=== PATIENT | male | born 1955 | race Caucasian/White ===

== ENCOUNTER 2020-03-23 09:44 | Emergency (ER) | payer OTHER, SELFPAY ==
[2020-03-23] VITALS (16 sets, daily range): BP systolic 140–181; BP diastolic 72–108; PULSE 76–92; RESP 16; TEMP 36.1; O2SAT 93–99
--- NOTE | 2020-03-23 09:55 | ED.BACK ---
HPI - Back Pain/Injury General Chief Complaint: Extremity Injury, Lower Stated Complaint: Leg spasm Time Seen by Provider: 03/23/20 09:48 Source: patient and EMS Mode of arrival: EMS Limitations: no limitations History of Present Illness HPI Narrative: This is a 64-year-old male who comes to the emergency department with acute on chronic lumbar back pain radiated into his leg. This morning while sitting in his chair watching TV patient states his left lower extremity started to have increasing pain and spasming. He states he has not been able to get it to stop. Patient states that he is having difficulty with movement. He has had chronic back issues in the past and states he can easily tweak his back. He states he kind of tweaked it earlier this week getting out of a car Um. His pattern of pain has not changed but the spasm is new. He states it has been occurring for approximately 30 minutes. He does have some tingling in the toes but denies any other numbness or sensation changes. He denies any saddle anesthesia. No bowel or bladder incontinence. He denies any fevers, no chills no cold cough or congestion. No chest pain or shortness of breath. No nausea or vomiting. No other GI or urinary symptoms. Patient denies any other medical issues. He denies any prior surgeries except for cholecystectomy. He states no prior back surgeries or interventions. Patient denies any allergies to medications. No tobacco, alcohol or illicit. Related Data Home Medications Medication Instructions Recorded Confirmed naproxen sodium [Aleve] 220 mg PO BID PRN 03/23/20 03/23/20 Allergies Allergy/AdvReac Type Severity Reaction Status Date / Time No Known Drug Allergies Allergy Verified 03/23/20 10:23 Review of Systems Review of Systems ROS Unobtainable: All systems reviewed & are unremarkable except as noted in HPI and below Patient History Medical History (Updated 03/23/20 @ 15:40 by Georgiana Galindo DO) Chronic back pain Surgical History (Updated 03/23/20 @ 10:00 by Georgiana Galindo DO) Hx of cholecystectomy Social History Smoking Status: Former smoker Smoking Status: Former smoker Substance Use Type: does not use Exam Narrative Exam Narrative: GEN: Obese, well-appearing male, alert and oriented x 3, patient appears to be in [id number] distress. HEENT: Atraumatic, pupils are equal round reactive to light, extraocular movements are intact, nares are clear. HEART: Regular rate and rhythm without murmur, clicks, rubs. LUNGS:Lungs clear to auscultation, no wheezes, rales, crackles, chest moves symmetrically ABD:bowel sounds normal, soft, non-tender, no guarding, rebound, rigidity, no masses noted, no hepatosplenomegaly :No CVA tenderness BACK: No cervical, thoracic or lumbar vertebral point tenderness. Patient does have discomfort with palpation of the left piriformis region. Patient has decreased range of motion. Patient's gait is not tested. Muscle strength is difficult to evaluate on exam patient has full range of motion of his right lower extremity. He has twitching or shaking of his left lower extremity and into the foot there are no fasciculations appreciated but patient has difficulty with any sort of movement. DTRs tested but difficult to assess secondary to movement. 2+ dorsalis pedis bilaterally. Sensation is intact in bilateral lower extremities. MSCL: Non-tender, no muscle atrophy, no swelling or edema, no cyanosis, pallor or other skin changes. NEURO:CN 2-12 intact, sensation normal Initial Vital Signs Initial Vital Signs: Vital Signs Temperature 97.0 F L 03/23/20 09:49 Pulse Rate 92 H 03/23/20 09:49 Respiratory Rate 16 03/23/20 09:49 Blood Pressure 181/101 H 03/23/20 09:49 Pulse Oximetry 99 03/23/20 09:49 Scores GCS Marisela coma scale eye opening: Spontaneous Marisela coma scale verbal response: Orientated [place] coma scale motor response: Obey commands [place] coma scale total score: 15 Course Orders Ordered: ED Orders 03/23/20 09:55 CT lumbar spine wo con Stat 03/23/20 10:25 CT head/brain wo con Stat 03/23/20 10:40 Complete Blood Count AUTO DIFF Stat Comprehensive Metabolic Panel Stat Magnesium Stat Prolactin Stat 03/23/20 10:59 CT chest abd pel w con Stat 03/23/20 11:05 COVID19 Stat Discontinued Medications Dexamethasone (Dexamethasone 10 Mg/Ml Vial) 10 mg IV NOW ONE Stop: 03/23/20 09:59 Last Admin: 03/23/20 10:05 Dose: 10 mg Documented by: WAYNE Diazepam (Diazepam 10 Mg/2 Ml Syringe) 2 mg IV NOW ONE Stop: 03/23/20 09:56 Last Admin: 03/23/20 10:05 Dose: 2 mg Documented by: WAYNE Diazepam (Diazepam 10 Mg/2 Ml Syringe) 5 mg IV NOW ONE Stop: 03/23/20 10:30 Last Admin: 03/23/20 10:30 Dose: 5 mg Documented by: WAYNE Sodium Chloride (Normal Saline 0.9%) 1,000 mls @ 1,000 mls/hr IV BOLUS ONE Stop: 03/23/20 10:54 Last Infusion: 03/23/20 11:25 Dose: 0 mls/hr Documented by: Admin: 03/23/20 10:05 Dose: 1,000 mls/hr Documented by: WAYNE Levetiracetam 1,000 mg/ Sodium (Chloride) 110 mls @ 440 mls/hr IV NOW ONE Stop: 03/23/20 11:01 Last Infusion: 03/23/20 12:05 Dose: 0 mls/hr Documented by: Admin: 03/23/20 11:21 Dose: 440 mls/hr Documented by: WAYNE Ketorolac Tromethamine (Ketorolac 30 Mg/Ml Vial) 30 mg IV NOW ONE Stop: 03/23/20 09:56 Last Admin: 03/23/20 10:11 Dose: 30 mg Documented by: WAYNE Oxycodone HCl (Oxycodone Ir 5 Mg Tablet) 5 mg PO NOW ONE Stop: 03/23/20 14:57 Last Admin: 03/23/20 15:00 Dose: 5 mg Documented by: WAYNE Reevaluation(s) Reevaluation #1: Patient did not have improvement of shaking until after second dose of valium. Pain is slowly improving with Toradol. Time: 10:33 Consultations Consultation #1: Dr. Romero called with results of Head CT. Appears to be metastatic lesions on CT. Time: 10:43 Consultation #2: Spoke with Dr. Glaser from oncology. Recommends dexamethason, Keppra may be appropriate especially if patient does not choose hospitalization. If patient is amenable with extensive changes and edema on CT would like benefit from transfer for eval and possible initiation of radiation which would be hard to do quickly over the holidays. Dr. Glaser would recommend [place], [place], [place] as closest best choices. Time: 11:15 Consultation #3: Spoke with Dr. Simpson with oncology at [place]. He discussed case with radiation oncology and recommends transfer to [facility] for further workup and possible biopsy. Time: 14:34 Additional Consultation(s): Call to [facility], spoke with Dr. Caban the medical attending at [facility] ER accepts for transfer. He asked that we do relay that patient will have initial workup and review emergency department and then will likely be transferred to [facility] for the rest of his care dependent on how long and course of care in the emergency department. Patient was updated in department and is comfortable with plan. Vital Signs Vital signs: Vital Signs - 8 hr 03/23/20 10:29 03/23/20 10:30 03/23/20 10:31 Pulse Rate 86 87 83 Respiratory Rate Blood Pressure 155/93 H 155/108 H Pulse Oximetry 96 97 96 03/23/20 11:00 03/23/20 11:01 03/23/20 11:37 Pulse Rate 83 83 Respiratory Rate Blood Pressure 152/85 H Pulse Oximetry 95 95 98 03/23/20 11:38 03/23/20 12:00 03/23/20 12:01 Pulse Rate 92 H 76 79 Respiratory Rate Blood Pressure 140/82 147/81 H Pulse Oximetry 97 97 96 03/23/20 12:30 03/23/20 12:31 03/23/20 14:10 Pulse Rate 85 85 91 H Respiratory Rate Blood Pressure 145/72 H 151/83 H Pulse Oximetry 95 94 93 03/23/20 15:46 Pulse Rate 88 Respiratory Rate 16 Blood Pressure 152/78 H Pulse Oximetry MDM - Back Pain/Injury Lab Data Attestation: I reviewed the patient's lab results. Result diagrams: 03/23/20 10:40 03/23/20 10:40 Labs: Lab Results 03/23/20 03/23/20 03/23/20 Range/Units 10:40 10:40 11:05 WBC 6.7 (4.5-11.0) X10^3/uL RBC 5.26 (4.5-5.9) X10^6/uL Hgb 15.3 (13.5-17.5) g/dL Hct 44.2 (41-53) % MCV 84.0 (80-100) fL MCH 29.0 (26-34) PG MCHC 34.5 (30-36) % RDW 13.3 (11.6-14.8) % Plt Count 159 (150-400) X10^3/uL Neut % (Auto) 63.9 (50-75) % Lymph % (Auto) 27.1 (25-40) % [place] % (Auto) 6.3 (3-14) % Eos % (Auto) 2.2 (2-4) % Baso % (Auto) 0.5 (0-2) % Neut # (Auto) 4300 (1649-5240) /uL Lymph # (Auto) 1800 (9150-7486) /uL [place] # (Auto) 400 (0-900) /uL Eos # (Auto) 100 (0-450) /uL Baso # (Auto) 0 (0-100) /uL Sodium 138 (137-145) mmol/L Potassium 4.6 (3.4-5.1) mmol/L Chloride 107 (98-107) mmol/L Carbon Dioxide 29 (22-32) mmol/L BUN 23 H (9-20) mg/dL Creatinine 0.69 (0.66-1.25) mg/dL Estimated GFR > 60.0 (>60) mL/min BUN/Creatinine Ratio 33.3 H (6-22) Glucose 127 H (80-110) mg/dL Calcium 8.8 (8.4-10.2) mg/dL Magnesium 1.9 (1.6-2.3) mg/dL Total Bilirubin 0.5 (0.2-1.3) mg/dL AST 19 (17-59) IU/L ALT 20 (<50) IU/L Alkaline Phosphatase 75 (38-126) U/L Total Protein 6.7 (6.3-8.2) g/dL Albumin 3.8 (3.5-5.0) g/dL Globulin 2.9 (1.7-4.1) g/dL Albumin/Globulin Ratio 1.3 (1.0-2.8) Prolactin 20.7 H (3.7-17.9) ng/mL COVID-19 PCR Negative (Negative) Urine Dip Bedside Urine Glucose Negative Bedside Urine Bilirubin - Negative Bedside Urine Ketone - Negative Urine Specific [place] 1.015 Bedside Urine Occult Blood - Negative Bedside Urine pH 7.5 Bedside Urine Protein - Negative Bedside Urine Urobilinogen - Negative Bedside Urine Nitrite - Negative Bedside Urine Leukocytes - Negative Esterase Imaging Data CT scan - head: Radiologist's Impression: [facility] [place] [id number] Scan ReportSigned Patient: Nini Jensen EMR#: [id number]: 6Acct:[id number]/Sex: 64 / MDate of Service: 03/23/20Loc: EDAccession Number: [id number] Procedure: CT head/brain wo con Ordering Provider: Georgiana Galindo D.O. PROCEDURE: CT HEAD/BRAIN WO CON INDICATIONS: back pain, lower leg pain, new spasm will not stop of LLE TECHNIQUE: Noncontrast 4.5 mm thick angled axial sections acquired from the foramen magnum to the vertex, with coronal and sagittal reformats. For radiation dose reduction, the following was used: automated exposure control, adjustment of mA and/or kV according to patient size. COMPARISON: [facility], CT, CT LUMBAR SPINE WO CON, 03/23/2020, 10:07. FINDINGS: Image quality: Excellent. CSF spaces: Basal cisterns are patent. No extra-axial fluid collections. The ventricles are symmetric in size and shape. Brain: Broad areas of vasogenic edema can be seen involving the right cerebral hemisphere, with relative sparing of the overlying cortex. There is also mild low density seen within the left temporal lobe anteriorly. No intracranial hemorrhage can be seen. There is cerebral volume loss for age, with resultant ventricular and sulcal prominence. There are periventricular and deep white matter chronic small vessel ischemic changes. There is intracranial internal carotid artery atherosclerosis. Skull and face: Calvarium and visualized facial bones appear intact, without suspicious lesions. Sinuses: Visualized sinuses and mastoids are clear. IMPRESSION: High suspicion for intracranial metastatic disease. When clinically appropriate, please consider a dedicated brain MRI (without and with contrast) for further evaluation (assuming that there is no contraindication). Note: Findings and recommendations discussed by telephone with Dr. Galindo at 9:41 a.m. [place] time on March 23, 2020. Dictated by: Chaitanya Romero M.D. on 03/23/2020 at 9:35 Approved by: Chaitanya Romero M.D. on 03/23/2020 at 9:[address]: Radiologist's Impression: [facility] [place] [id number] Scan ReportSigned Patient: Nini Jensen EMR#: [id number]: 6Acct:[id number]/Sex: 64 / MDate of Service: 03/23/20Loc: EDAccession Number: [id number] Procedure: CT lumbar spine wo con Ordering Provider: Georgiana Galindo D.O. PROCEDURE: CT LUMBAR SPINE WO CON INDICATIONS: back pain, lower leg pain, new spasm will not stop of LLE TECHNIQUE: Noncontrast 3 mm thick sections acquired from the T12 level to the sacrum. Sagittal and coronal reformats were constructed. For radiation dose reduction, the following was used: automated exposure control. COMPARISON: [facility], CT, CT HEAD/BRAIN WO CON, 03/23/2020, 10:07. FINDINGS: Image quality: Excellent. Bones: No acute vertebral body compression fractures. No suspicious lytic or blastic bony lesions. Central spinal caliber is of normal overall caliber. No pars defects. Mild dextroconvex scoliotic curvature is seen. There is minimal retrolisthesis seen at the L1-L2 level and at the L5-S1 level. T12-L1: Normal. L1-L2: Calcification can be seen along the posterior aspect of the annulus fibrosus, as on series 8, image 40. L2-L3: The disc height is well preserved. Mild generalized disc bulge is seen. There is osep-my-mdduluog right-sided and no significant left-sided neural foraminal narrowing seen. Minimal central canal narrowing is seen. L3-L4: The disc height is well preserved. Mild to moderate disc bulge is seen. Moderate bilateral neural foraminal narrowing is seen. Mild central canal narrowing is seen. L4-L5: Minimal loss of disc height is seen. Moderate disc bulge is seen, with a central/left disc protrusion. At least moderate facet hypertrophy is seen. Associated hypertrophy of the ligamentum flavum can be seen. There is moderate to severe right-sided and at least moderate left-sided neural foraminal narrowing seen. At least moderate central canal narrowing is seen. L5-S1: Mild loss of disc height is seen. Moderate to prominent disc bulge is seen. Moderate facet joint hypertrophy is seen. There is moderate to severe right-sided and moderate left-sided neural foraminal narrowing seen. Moderate central canal narrowing is seen. Soft tissues: No retroperitoneal masses or hematomas. Visualized aorta is normal in caliber. Atherosclerotic calcification is noted. A normal appendix is incidentally noted. IMPRESSION: Degenerative changes are seen, which are worst involving the lower lumbar spine. Dictated by: Chaitanya Romero M.D. on 03/23/2020 at 9:43 Approved by: Chaitanya Romero M.D. on 03/23/2020 at 9:46 CT scan - abdomen/pelvis: Radiologist's Impression: [address] [id number] Scan ReportSigned Patient: Nini eJnsen EMR#: [id number]: 6Acct:[id number]/Sex: 64 / MDate of Service: 03/23/20Loc: EDAccession Number: [id number] Procedure: CT chest abd pel w con Ordering Provider: Georgiana Galindo D.O. PROCEDURE: CT CHEST ABD PEL W CON INDICATIONS: lesions in brain, no known prior ca history. TECHNIQUE: After the administration of oral and intravenous contrast, 5 mm thick sections acquired from the lung apices to the symphysis. 5 mm coronal and sagittal reformats were performed, with additional 7 mm coronal MIP reformats through the lungs. For radiation dose reduction, the following was used: automated exposure control, adjustment of mA and/or kV according to patient size. COMPARISON: [facility], CT, ABDOMEN/PELVIS WITH CONTRAST, 05/14/2013, 19:03. FINDINGS: Image quality: Excellent. CHEST: Lungs and pleura: Dependent atelectasis/scarring in posterior aspect of bilateral lower lobes are seen. No pleural effusions or pneumothorax. Central and peripheral airways appear patent and normal in caliber. Mediastinum: Heart size is mildly enlarged. No pericardial effusion. No mediastinal or hilar adenopathy by size criteria. Thoracic aorta and central pulmonary arteries are normal in size. Esophagus is normal in caliber. There is a small hiatal hernia. Chest wall: No axillary or supraclavicular adenopathy by size criteria. Thyroid gland is within normal limits. ABDOMEN: Solid organs: Liver is normal in size . Decreased liver parenchymal density is seen consistent with hepatic steatosis. No discrete hepatic lesion is noted. Gallbladder is surgically absent. Biliary system is non dilated. Pancreas enhances normally. Spleen is enlarged, no discrete splenic lesion. No adrenal nodules. Kidneys demonstrate normal size and enhancement, without hydronephrosis. Bilateral renal parenchymal hypodensities are seen measures up to 1.6 centimeters in midpole of left kidney and likely represent renal cysts. Peritoneum and bowel: Bowel loops demonstrate normal wall thickness and caliber. No free fluid or air. Appendix is visualized and is within normal limits. Nodes and vessels: No retroperitoneal or mesenteric adenopathy by size criteria. Aorta and inferior vena cava are normal in size. Miscellaneous: No ventral hernias. PELVIS: Genitourinary: Bladder wall thickness is normal. Enlarged prostate gland with mild mass effect of floor of urinary bladder is seen. Miscellaneous: No inguinal hernias or adenopathy. Bones: No suspicious bony lesions. No vertebral body compression fractures. Please refer to lumbar spine CT report for evaluation of degenerative disc disease in lower lumbar spine. IMPRESSION: 1. Bibasilar dependent atelectasis/scarring. No discrete pulmonary nodule or mass. Airway is patent. 2. No lymphadenopathy is seen in chest, abdomen or pelvis. 3. Hepatic steatosis. No discrete hepatic lesion. Splenomegaly. 4. Small hiatal hernia. No bowel obstruction or abnormal bowel wall thickening. No free fluid or free air. 5. Suggestion of bilateral renal cysts. No hydronephrosis. Normal appearing urinary bladder. Mildly enlarged prostate gland with mass effect on bladder. 6. No gross suspicious bony lesion. Degenerative disc disease in lumbar spine better evaluated on dedicated CT of lumbar spine study. Dictated by: Chris Read M.D. on 03/23/2020 at 11:56 Approved by: Chris Read M.D. on 03/23/2020 at 12:33 MDM Narrative Medical decision making narrative: 64-year-old male comes to the emergency department with complaint of back pain acute on chronic and spasming or shaking of his left lower extremity for the past 30 minutes which will not stop. Patient has not had prior symptoms in the past. He denies any other issues other than some mild tingling in his toes an increase in his typical back pain. Patient's head CT shows significant areas of vasogenic edema in the right cerebral hemisphere with relative sparing of the overlying cortex, there is also a low-density lesion seen in the left temporal lobe anteriorly. Findings are highly suspicious for intracranial metastatic disease patient does not have any known for prior cancer history. Discussed with Oncology who recommended dexamethasone, as well as possible transfer to a larger facility to initiate radiation treatment as it will be difficult to initiate this yet over the holiday week and we do not have available at our facility. Spoke with Oncology initially at [facility] in billing who referred us to [facility] and I spoke with Dr. Caban who accepts for transfer. He is comfortable with the current dose of dexamethasone. Patient's plan is to be transferred to the emergency department at [facility] and ultimately to [facility] after the initial workup and evaluation by neurosurgery has been performed dependent on the findings from initial workup. Patient was informed of this plan, he is comfortable with this. He currently has family in the area to help his while he is gone. He has not had any additional activity or spasm/focal seizure activity in his lower extremity since he received the Valium, dexamethasone and Keppra. Patient has been asymptomatic through the rest of his stay. Discharge Plan Departure Patient Disposition: [facility] Clinical Impression: Focal motor seizure, Brain lesion Prescriptions: No Action naproxen sodium [Aleve] 220 mg Capsule 220 mg PO BID PRN (Reason: Back Pain) RF: 0 Referrals: Provider,Conversion [Primary Care Provider] -
[2020-03-23] MEDS: diazePAM 10 MG/2 ML SYRINGE 2 MG IV (10:05)
[2020-03-23] MEDS: SODIUM CHLORIDE 0.9% 1,000 ML 1000 ML IV (10:05)
[2020-03-23] MEDS: DEXAMETHASONE 10 MG/ML VIAL IV (10:05)
[2020-03-23] MEDS: KETOROLAC 30 MG/ML VIAL IV (10:11)
--- NOTE | 2020-03-23 10:22 | PC.NURSE ---
Pt c/o left leg spasms, moving constantly and does not stop when caregiver puts hand on extremity to stop it. Following commands. Speech is clear. Denies trauma, Easy work of breathing, Denies chest pain, shortness of breath, fever, weakness.
--- NOTE | 2020-03-23 10:25 | DI.CT.S_ITS ---
PROCEDURE: CT HEAD/BRAIN WO CON INDICATIONS: back pain, lower leg pain, new spasm will not stop of LLE TECHNIQUE: Noncontrast 4.5 mm thick angled axial sections acquired from the foramen magnum to the vertex, with coronal and sagittal reformats. For radiation dose reduction, the following was used: automated exposure control, adjustment of mA and/or kV according to patient size. COMPARISON: [facility], CT, CT LUMBAR SPINE WO CON, 03/23/2020, 10:07. FINDINGS: Image quality: Excellent. CSF spaces: Basal cisterns are patent. No extra-axial fluid collections. The ventricles are symmetric in size and shape. Brain: Broad areas of vasogenic edema can be seen involving the right cerebral hemisphere, with relative sparing of the overlying cortex. There is also mild low density seen within the left temporal lobe anteriorly. No intracranial hemorrhage can be seen. There is cerebral volume loss for age, with resultant ventricular and sulcal prominence. There are periventricular and deep white matter chronic small vessel ischemic changes. There is intracranial internal carotid artery atherosclerosis. Skull and face: Calvarium and visualized facial bones appear intact, without suspicious lesions. Sinuses: Visualized sinuses and mastoids are clear. IMPRESSION: High suspicion for intracranial metastatic disease. When clinically appropriate, please consider a dedicated brain MRI (without and with contrast) for further evaluation (assuming that there is no contraindication). Note: Findings and recommendations discussed by telephone with Dr. Galindo at 9:41 a.m. [place] time on March 23, 2020. Dictated by: Chaitanya Romero M.D. on 03/23/2020 at 9:35 Approved by: Chaitanya Romero M.D. on 03/23/2020 at 9:42
[2020-03-23] MEDS: diazePAM 10 MG/2 ML SYRINGE 5 MG IV (10:30)
[2020-03-23 10:45] LABS: Add Manual Diff / Slide Review NO; Basophils Absolute Auto 0 /uL (0-100); Basophils Percent Auto 0.5 % (0-2); Eosinophils Absolute Auto 100 /uL (0-450); Eosinophils Percent Auto 2.2 % (2-4); Hematocrit 44.2 % (41-53); Hemoglobin 15.3 g/dL (13.5-17.5); Lymphocytes Absolute Auto 1800 /uL (1100-4500); Lymphocytes Percent Auto 27.1 % (25-40); Mean Corpuscular HGB Conc 34.5 % (30-36); Monocytes Absolute Auto 400 /uL (0-900); Monocytes Percent Auto 6.3 % (3-14); Neutrophils Absolute Auto 4300 /uL (1500-7000); Neutrophils Percent Auto 63.9 % (50-75); Platelet Count 159 X10^3/uL (150-400); Red Blood Cell Count 5.26 X10^6/uL (4.5-5.9); Red Cell Distribution Width 13.3 % (11.6-14.8); White Blood Cell Count 6.7 X10^3/uL (4.5-11.0)
--- NOTE | 2020-03-23 10:51 | PC.NURSE ---
labs drawn w/o NS running below.
[2020-03-23 10:57] LABS: Alanine Aminotransferase 20 IU/L (<50); Albumin 3.8 g/dL (3.5-5.0); Albumin Globulin Ratio 1.3 (1.0-2.8); Alkaline Phosphatase 75 U/L (38-126); Aspartate Aminotransferase 19 IU/L (17-59); BUN Creatinine Ratio 33.3 (6-22); Bilirubin Total 0.5 mg/dL (0.2-1.3); Blood Urea Nitrogen 23 mg/dL (9-20); Calcium 8.8 mg/dL (8.4-10.2); Carbon Dioxide 29 mmol/L (22-32); Chloride 107 mmol/L (98-107); Estimated Glomerular Filt Rate > 60.0 mL/min (>60); Globulin 2.9 g/dL (1.7-4.1); Glucose 127 mg/dL (80-110); HEMOLYSIS < 15 (0-50); Magnesium 1.9 mg/dL (1.6-2.3); Potassium 4.6 mmol/L (3.4-5.1); Sodium 138 mmol/L (137-145); Total Protein 6.7 g/dL (6.3-8.2)
--- NOTE | 2020-03-23 10:59 | DI.CT.S_ITS ---
PROCEDURE: CT CHEST ABD PEL W CON INDICATIONS: lesions in brain, no known prior ca history. TECHNIQUE: After the administration of oral and intravenous contrast, 5 mm thick sections acquired from the lung apices to the symphysis. 5 mm coronal and sagittal reformats were performed, with additional 7 mm coronal MIP reformats through the lungs. For radiation dose reduction, the following was used: automated exposure control, adjustment of mA and/or kV according to patient size. COMPARISON: [facility], CT, ABDOMEN/PELVIS WITH CONTRAST, 05/14/2013, 19:03. FINDINGS: Image quality: Excellent. CHEST: Lungs and pleura: Dependent atelectasis/scarring in posterior aspect of bilateral lower lobes are seen. No pleural effusions or pneumothorax. Central and peripheral airways appear patent and normal in caliber. Mediastinum: Heart size is mildly enlarged. No pericardial effusion. No mediastinal or hilar adenopathy by size criteria. Thoracic aorta and central pulmonary arteries are normal in size. Esophagus is normal in caliber. There is a small hiatal hernia. Chest wall: No axillary or supraclavicular adenopathy by size criteria. Thyroid gland is within normal limits. ABDOMEN: Solid organs: Liver is normal in size . Decreased liver parenchymal density is seen consistent with hepatic steatosis. No discrete hepatic lesion is noted. Gallbladder is surgically absent. Biliary system is non dilated. Pancreas enhances normally. Spleen is enlarged, no discrete splenic lesion. No adrenal nodules. Kidneys demonstrate normal size and enhancement, without hydronephrosis. Bilateral renal parenchymal hypodensities are seen measures up to 1.6 centimeters in midpole of left kidney and likely represent renal cysts. Peritoneum and bowel: Bowel loops demonstrate normal wall thickness and caliber. No free fluid or air. Appendix is visualized and is within normal limits. Nodes and vessels: No retroperitoneal or mesenteric adenopathy by size criteria. Aorta and inferior vena cava are normal in size. Miscellaneous: No ventral hernias. PELVIS: Genitourinary: Bladder wall thickness is normal. Enlarged prostate gland with mild mass effect of floor of urinary bladder is seen. Miscellaneous: No inguinal hernias or adenopathy. Bones: No suspicious bony lesions. No vertebral body compression fractures. Please refer to lumbar spine CT report for evaluation of degenerative disc disease in lower lumbar spine. IMPRESSION: 1. Bibasilar dependent atelectasis/scarring. No discrete pulmonary nodule or mass. Airway is patent. 2. No lymphadenopathy is seen in chest, abdomen or pelvis. 3. Hepatic steatosis. No discrete hepatic lesion. Splenomegaly. 4. Small hiatal hernia. No bowel obstruction or abnormal bowel wall thickening. No free fluid or free air. 5. Suggestion of bilateral renal cysts. No hydronephrosis. Normal appearing urinary bladder. Mildly enlarged prostate gland with mass effect on bladder. 6. No gross suspicious bony lesion. Degenerative disc disease in lumbar spine better evaluated on dedicated CT of lumbar spine study. Dictated by: Chris Read M.D. on 03/23/2020 at 11:56 Approved by: Chris Read M.D. on 03/23/2020 at 12:33
[2020-03-23 11:13] LABS: Prolactin 20.7 ng/mL (3.7-17.9)
[2020-03-23] MEDS: levETIRAcetam 1,000 MG in SODIUM CHLORIDE 0.9% 100 ML 440 ML IV (11:21)
[2020-03-23 11:43] LABS: COVID19 -Nasal RAPID Negative (Negative)
[2020-03-23] MEDS: OXYCODONE IR 5 MG TABLET PO (15:00)
== END 2020-03-23 17:11 | disposition short-term general hospital (02) ==
PROVIDERS: Emergency Provider Emergency Medicine
DX: G40.109 Localization-related (focal) (partial) symptomatic epilepsy and epileptic syndromes with simple partial seizures, not intractable, without status epilepticus (principal); G93.9 Disorder of brain, unspecified; M54.9 Dorsalgia, unspecified; M79.605 Pain in left leg; Z20.828 Contact with and (suspected) exposure to other viral communicable diseases; E66.9 Obesity, unspecified
CPT/HCPCS: 36415; 70450; 71260; 72131; 74177; 80053; 81003; 83735; 84146; 85025; 87635; 96361; 96365; 96375; 96376; 99284; 99285; J1100; J1885; J1953; J3360; Q9967

== ENCOUNTER 2020-04-12 13:35 | Emergency (ER) | payer OTHER, SELFPAY ==
[2020-04-12] VITALS (14 sets, daily range): BP systolic 124–153; BP diastolic 71–90; PULSE 84–98; RESP 13–25; TEMP 37.1; O2SAT 95–99
--- NOTE | 2020-04-12 13:46 | ED.SEIZURE ---
HPI - Seizure General Chief Complaint: Seizure Stated Complaint: Seizure Time Seen by Provider: 04/12/20 13:38 Source: patient and family Mode of arrival: Wheelchair History of Present Illness HPI Narrative: Patient is a 64-year-old male who presents after having brain tumors removed at [facility] 04/05/2020 and released few days ago discharge home on Keppra. Son states that he had a seizure today. Patient said that his face and lips were tingly he had difficulty speaking but was able to get out words of seizure. He remained where the whole time he did not have any tonic-clonic movements or urinary incontinence. He was able to repeat the word seizure a few times while on the couch. The feeling lasted for approximately 5 minutes. No focal deficits at this time. He has not had any fever or chills. MD complaint: possible seizure Related Data Home Medications Medication Instructions Recorded Confirmed levetiracetam [Keppra] 1,000 mg PO DAILY 04/12/20 04/12/20 oxycodone 5 mg PO Q4H PRN 04/12/20 04/12/20 sennosides [Senna Lax] 8.6 mg PO BEDTIME 04/12/20 04/12/20 Allergies Allergy/AdvReac Type Severity Reaction Status Date / Time No Known Drug Allergies Allergy Verified 03/23/20 10:23 Review of Systems Review of Systems ROS Unobtainable: All systems reviewed & are unremarkable except as noted in HPI and below Constitutional Constitutional: Denies chills, Denies fever(s), Denies lethargy and Denies weakness Cardiovascular Cardiovascular: Denies chest pain, Denies irregular heart rhythm, Denies lightheadedness, Denies palpitations, Denies dyspnea, Denies dyspnea on exertion and Denies orthopnea Respiratory Respiratory: Denies cough, Denies dyspnea, Denies dyspnea on exertion and Denies wheezing Gastrointestinal Gastrointestinal: Denies abdominal pain, Denies change in bowel habits, Denies diarrhea, Denies nausea and Denies vomiting Musculoskeletal Musculoskeletal: Denies back pain and Denies myalgias Integumentary/Breasts Skin/Breast: Denies pruritus, Denies erythema, Denies rash and Denies wounds Neurologic Neurologic: Reports as per HPI and Denies weakness Endocrine Endocrine: Denies palpitations Allergic/Immunologic Allergic/Immunologic: Denies wheezing Patient History Medical History Chronic back pain Surgical History Hx of cholecystectomy Social History Smoking Status: Former smoker Smoking Status: Former smoker alcohol intake frequency: other Substance Use Type: does not use Exam Initial Vital Signs Initial Vital Signs: Vital Signs Temperature 98.8 F 04/12/20 13:37 Pulse Rate 92 H 04/12/20 13:37 Respiratory Rate 17 04/12/20 13:37 Blood Pressure 146/90 H 04/12/20 13:37 Pulse Oximetry 99 04/12/20 13:37 GENERAL: Well-appearing, well-nourished and in no acute distress. HEENT: Head postoperative changes noted,EOMI, pupils reactive, face symmetric, moist mucous membranes CARDIOVASCULAR: Regular rate and rhythm without murmurs, rubs or gallops. RESPIRATORY: Breath sounds equal bilaterally, no wheezes rales or rhonchi. ABDOMEN: Soft, nontender. Normoactive bowel sounds all 4 quadrants. No guarding or rebound. EXTREMITIES: Normal range of motion, no clubbing or edema. Neurovascularly intact NEUROLOGICAL: Alert and oriented x4.Normal gait and speech. Cranial nerves II through XII grossly intact. Good [id number], good [id number], strength equal bilaterally, no dysarthria or aphasia, sensation in tact to soft touch bilaterally, no visual changes, no facial droop SKIN: Warm, dry, no laceration, no petechiae, no rashes or lesions. Course Orders Ordered: ED Orders 04/12/20 13:41 EKG-12 Lead Stat 04/12/20 13:49 CT head/brain wo con Stat 04/12/20 14:25 Basic Metabolic Panel Stat Complete Blood Count AUTO DIFF Stat Magnesium Stat Prolactin Stat 04/12/20 18:30 Urinalysis Screen (Dip Only) Stat Vital Signs Vital signs: Vital Signs - 8 hr 04/12/20 13:37 04/12/20 14:05 04/12/20 14:06 Temperature 98.8 F Pulse Rate 98 H 95 H 93 H Respiratory Rate 25 H 19 18 Blood Pressure 146/90 H 153/80 H Pulse Oximetry 95 96 96 04/12/20 14:30 04/12/20 15:00 04/12/20 15:30 Temperature Pulse Rate 88 88 92 H Respiratory Rate 19 13 17 Blood Pressure 148/76 H 138/75 139/72 Pulse Oximetry 95 98 97 04/12/20 16:00 04/12/20 16:30 04/12/20 17:00 Temperature Pulse Rate 87 89 86 Respiratory Rate 24 23 18 Blood Pressure 145/76 H 151/82 H 143/71 H Pulse Oximetry 98 98 96 04/12/20 17:30 04/12/20 18:00 04/12/20 18:30 Temperature Pulse Rate 84 87 84 Respiratory Rate 18 21 23 Blood Pressure 134/77 124/81 Pulse Oximetry 96 98 98 04/12/20 19:00 04/12/20 19:01 Temperature Pulse Rate 87 86 Respiratory Rate 24 24 Blood Pressure Pulse Oximetry 98 98 MDM - Seizure Lab Data Attestation: I reviewed the patient's lab results. Result diagrams: 04/12/20 14:25 04/12/20 14:25 Labs: Lab Results 04/12/20 04/12/20 04/12/20 Range/Units 14:25 14:25 18:30 WBC 7.8 (4.5-11.0) X10^3/uL RBC 4.45 L (4.5-5.9) X10^6/uL Hgb 12.7 L (13.5-17.5) g/dL Hct 38.4 L (41-53) % MCV 86.3 (80-100) fL MCH 28.5 (26-34) PG MCHC 33.0 (30-36) % RDW 13.7 (11.6-14.8) % Plt Count 158 (150-400) X10^3/uL Neut % (Auto) Not Reportable Lymph % (Auto) Not Reportable [place] % (Auto) Not Reportable Eos % (Auto) Not Reportable Baso % (Auto) Not Reportable Lymph # (Auto) Not Reportable [place] # (Auto) Not Reportable Baso # (Auto) Not Reportable Total Counted 100 Seg Neutrophils % 70.0 (38-70) % Lymphocytes % (Manual) 21.0 L (25-45) % Monocytes % (Manual) 7.0 (2-11) % Eosinophils % (Manual) 1.0 L (2-4) % Metamyelocytes % 1.0 H (-0) % Neutrophils # (Manual) 5460 (1620-9967) /uL RBC Morphology Normal morphology Sodium 139 (137-145) mmol/L Potassium 4.0 (3.4-5.1) mmol/L Chloride 106 (98-107) mmol/L Carbon Dioxide 31 (22-32) mmol/L BUN 19 (9-20) mg/dL Creatinine 0.71 (0.66-1.25) mg/dL Estimated GFR > 60.0 (>60) mL/min BUN/Creatinine Ratio 26.8 H (6-22) Glucose 226 H (80-110) mg/dL Calcium 8.9 (8.4-10.2) mg/dL Magnesium 2.0 (1.6-2.3) mg/dL Prolactin 16.1 (3.7-17.9) ng/mL Urine Color Yellow Urine Appearance Clear Urine pH 5.5 (4.5-8.0) Ur Specific [place] 1.025 (1.000-1.035) Urine Protein Negative (Negative) Urine Glucose (UA) Trace H (Negative) g/dL Urine Ketones Negative (NEGATIVE) Urine Occult Blood Negative (Negative) Urine Nitrate Negative (Negative) Urine Bilirubin Negative (NEGATIVE) Urine Urobilinogen 0.2 (0.2) E.U./dL Ur Leukocyte Esterase Negative (NEGATIVE) Urine Dip Bedside Urine Glucose Negative Bedside Urine Bilirubin - Negative Bedside Urine Ketone - Negative Urine Specific [place] 1.030 Bedside Urine Occult Blood - Negative Bedside Urine pH 6.0 Bedside Urine Protein - Negative Bedside Urine Urobilinogen - Negative Bedside Urine Nitrite - Negative Bedside Urine Leukocytes - Negative Esterase Imaging Data CT scan - head: Radiologist's Impression: PROCEDURE: CT HEAD/BRAIN WO CON INDICATIONS: recent tumor removal. TECHNIQUE: Noncontrast 4.5 mm thick angled axial sections acquired from the foramen magnum to the vertex, with coronal and sagittal reformats. For radiation dose reduction, the following was used: automated exposure control, adjustment of mA and/or kV according to patient size. COMPARISON: [facility], CT, CT HEAD/BRAIN WO CON, 03/23/2020, 10:07. FINDINGS: Image quality: Excellent. CSF spaces: Basal cisterns are patent. No extra-axial fluid collections. Note is made of a small amount of extra-axial gas deep to the area of right frontal craniotomy. Ventricles are normal in size and shape. Brain: No midline shift. No new intracranial masses are found in this patient who has undergone craniotomy for tumor biopsy. There is a small amount of intracranial hemorrhage at the superior right parafalcine parietal cortical margin, seen on series 2, image 25, without mass effect. This area measures approximately 2.6 cm AP and 8 mm transverse. or hemorrhage. Lutz-white matter interface is normal. Skull and face: Calvarium and visualized facial bones are intact, without suspicious lesions. Sinuses: Visualized sinuses and mastoids are clear. IMPRESSION: Expected postsurgical change after craniotomy, right frontal parietal, with a small amount of pneumocephalus and right parafalcine postoperative hemorrhage measuring 8 by 26 mm. No significant mass effect. If possible a postoperative CT scan from the institution where neuro surgical intervention was performed would be beneficial, to establish presence or absence of chronicity of the small amount of hemorrhage noted above. Dictated by: Satinder Alcantar M.D. on 04/12/2020 at 15:03 MDM Narrative Medical decision making narrative: Based on patient's symptoms I am not concerned for seizure. He seems to have been aware no shaking episode numbness of the lips but no other focal deficits. Patient has not missed any Keppra doses. In fact he is due for his Keppra in the ED and takes his home pills Possible TIA. Images have been pushed [facility] there is technical difficulty and them reviewing it. It has been hours. Awaiting for neuro surgery to compare head CTs. 193 , neurosurgeon at [facility] reviewed CT looks like postoperative changes. Patient has appointment with his neurosurgeon tomorrow. At this time continue anti seizure medications Discharge Plan Departure Patient Disposition: Home Clinical Impression: Feared complaint without diagnosis Activity Restrictions/Additional Instructions: *You have been diagnosed with at this time it does not seem that you had a seizure *What to do: Your CT scan shows normal postoperative changes. Please follow-up with your neurosurgeon as scheduled for tomorrow *Continue to take medications as directed Please continue to take your Keppra as prescribed *Follow up with your primary care provider in 2-3 days *Return to ER if you should have shaking all over drooling at mouth loss of consciousness or any new, worsening or concerning symptoms Prescriptions: No Action oxycodone 5 mg Capsule 5 mg PO Q4H PRN (Reason: Pain (Scale Score 1-3)) RF: 0 levetiracetam [Keppra] 1,000 mg Tablet 1,000 mg PO DAILY RF: 0 sennosides [Senna Lax] 8.6 mg Tablet 8.6 mg PO BEDTIME RF: 0
--- NOTE | 2020-04-12 13:49 | DI.CT.S_ITS ---
PROCEDURE: CT HEAD/BRAIN WO CON INDICATIONS: recent tumor removal. TECHNIQUE: Noncontrast 4.5 mm thick angled axial sections acquired from the foramen magnum to the vertex, with coronal and sagittal reformats. For radiation dose reduction, the following was used: automated exposure control, adjustment of mA and/or kV according to patient size. COMPARISON: [facility], CT, CT HEAD/BRAIN WO CON, 03/23/2020, 10:07. FINDINGS: Image quality: Excellent. CSF spaces: Basal cisterns are patent. No extra-axial fluid collections. Note is made of a small amount of extra-axial gas deep to the area of right frontal craniotomy. Ventricles are normal in size and shape. Brain: No midline shift. No new intracranial masses are found in this patient who has undergone craniotomy for tumor biopsy. There is a small amount of intracranial hemorrhage at the superior right parafalcine parietal cortical margin, seen on series 2, image 25, without mass effect. This area measures approximately 2.6 cm AP and 8 mm transverse. or hemorrhage. Lutz-white matter interface is normal. Skull and face: Calvarium and visualized facial bones are intact, without suspicious lesions. Sinuses: Visualized sinuses and mastoids are clear. IMPRESSION: Expected postsurgical change after craniotomy, right frontal parietal, with a small amount of pneumocephalus and right parafalcine postoperative hemorrhage measuring 8 by 26 mm. No significant mass effect. If possible a postoperative CT scan from the institution where neuro surgical intervention was performed would be beneficial, to establish presence or absence of chronicity of the small amount of hemorrhage noted above. Dictated by: Satinder Alcantar M.D. on 04/12/2020 at 15:03 Approved by: Satinder Alcantar M.D. on 04/12/2020 at 15:07
[2020-04-12 14:35] LABS: Hemoglobin 12.7 g/dL (13.5-17.5); Mean Corpuscular Hemoglobin 28.5 PG (26-34); Red Blood Cell Count 4.45 X10^6/uL (4.5-5.9); Red Cell Distribution Width 13.7 % (11.6-14.8)
[2020-04-12 14:40] LABS: Hematocrit 38.4 % (41-53); Mean Corpuscular Volume 86.3 fL (80-100); Platelet Count 158 X10^3/uL (150-400); White Blood Cell Count 7.8 X10^3/uL (4.5-11.0)
[2020-04-12 14:41] LABS: Add Manual Diff / Slide Review YES
[2020-04-12 14:53] LABS: BUN Creatinine Ratio 26.8 (6-22); Blood Urea Nitrogen 19 mg/dL (9-20); Calcium 8.9 mg/dL (8.4-10.2); Carbon Dioxide 31 mmol/L (22-32); Chloride 106 mmol/L (98-107); Estimated Glomerular Filt Rate > 60.0 mL/min (>60); Glucose 226 mg/dL (80-110); HEMOLYSIS < 15 (0-50); Sodium 139 mmol/L (137-145)
[2020-04-12 15:13] LABS: Prolactin 16.1 ng/mL (3.7-17.9)
[2020-04-12 15:17] LABS: Neutrophils Absolute Manual 5460 /uL (3000-5900); Total Cells Counted 100
[2020-04-12 15:18] LABS: RBC Morphology Normal Morphology
[2020-04-12 18:48] LABS: Appearance Urine UA CLEAR; Bilirubin Urine UA NEGATIVE (NEGATIVE); Color Urine UA YELLOW; Glucose Urine UA TRACE g/dL (Negative); Ketones Urine UA NEGATIVE (NEGATIVE); Leukocyte Esterase Urine UA NEGATIVE (NEGATIVE); Nitrite Urine UA NEGATIVE (Negative); Occult Blood Urine UA NEGATIVE (Negative); Protein Urine UA NEGATIVE (Negative); Specific Gravity Urine UA 1.025 (1.000-1.035); Urobilinogen Urine UA 0.2 E.U./dL (0.2); pH Urine UA 5.5 (4.5-8.0)
== END 2020-04-12 19:46 | disposition home or self-care (01) ==
PROVIDERS: Emergency Provider Emergency Medicine
DX: R56.9 Unspecified convulsions (principal); Z86.011 Personal history of benign neoplasm of the brain; Z98.890 Other specified postprocedural states
CPT/HCPCS: 36415; 70450; 80048; 81003; 83735; 84146; 85007; 85025; 93005; 93010; 99283; 99284

== ENCOUNTER → 2020-05-11 08:21 | Outpatient (CLI) | payer OTHER, SELFPAY ==
--- NOTE | 2020-05-11 | DI.MRI.S_ITS ---
PROCEDURE: MR HEAD/BRAIN WO/W CON INDICATIONS: Malignant neoplasm of brain, unspecified TECHNIQUE: Noncontrast axial T1 spin echo, axial T2 fast spin echo, sagittal and axial FLAIR, coronal T2 fast spin echo, axial gradient echo, axial diffusion and ADC through the brain. After the administration of contrast, axial and coronal 3D VIBE or T1 spin echo with fat saturation through the brain. COMPARISON: [facility] Film, MR, MR BRAIN WITHOUT CONTRAST, 04/05/2020, 20:36. [facility], CT, CT HEAD/BRAIN WO CON, 04/12/2020, 13:53. FINDINGS: Image quality: Excellent. CSF Spaces: Basal cisterns are patent. No extra-axial fluid collections. Ventricles are normal in size and shape. Brain: No midline shift. As before, there are resection cavities within the right anterosuperior frontal lobe, as well as the right superomedial parietal lobe. There is a residual, predominantly necrotic right superomedial frontal lobe mass, which demonstrates peripheral and internal septal enhancement, which measures roughly 36 mm oblique transverse, which has increased in size. High T1 and low gradient echo signal intensity material within the previously seen right frontal lesion is present, as before, compatible with postsurgical hemorrhage. There is surrounding ill-defined FLAIR signal elevation within the right anterior frontal lobe, measuring roughly 62 mm anteroposterior by 50 mm transverse by 42 mm craniocaudal, which has increased from the prior examination. Additionally, at the anterior aspect of the right anterior frontal lobe, there is an apparently new focus of dural-based enhancement measuring 6 mm. There is mild surrounding ill-defined FLAIR signal elevation. As before, there is an enhancing focus within the right frontoparietal lobe junction, currently measuring roughly 9 mm anteroposterior, which is increased slightly in size, which demonstrates moderate surrounding FLAIR signal elevation, spanning roughly 15 mm anteroposterior. There is high precontrast T1 signal intensity within the right parietal resection cavity, as before, consistent with postsurgical sequelae. The resection cavity is unchanged in size measuring 25 mm. Previously seen FLAIR signal elevation surrounding this lesion has decreased, and is now mild. The previously seen postsurgical extra-axial epidural hemorrhage overlying the right superior frontal parietal lobe has decreased slightly, with a current maximal short axis diameter of roughly 16 mm overlying the right superior parietal lobe (previously measuring 18 mm thickness. Dural enhancement underlying the right frontal parietal craniotomy is present, as before, compatible with postsurgical sequelae. The brainstem appears normal. Diffusion-weighted images demonstrate no acute ischemic insults. No chronic ischemic insults. Normal intravascular flow voids are present. Skull and face: Right frontal parietal craniotomy has been performed. Several right frontoparietal paul holes are present. Calvarial marrow is otherwise normal in signal. Orbits appear normal. Sinuses: Sinuses and mastoids appear clear. IMPRESSION: 1. Postsurgical sequelae. 2. Findings consistent with tumor progression within the right anterior frontal lobe resection cavity, with increased surrounding vasogenic edema. 3. Progression of previously seen right posterolateral frontal lobe tumor with surrounding vasogenic edema. 4. Expected postsurgical sequelae involving the right parietal resection cavity. 5. Resolving extra-axial/postsurgical hemorrhage overlying the right superior frontal parietal lobes. 6. New dural-based focus of enhancement within the right anterior frontal lobe, with surrounding vasogenic edema. Recommend attention to this region on follow-up imaging studies to evaluate for progressive neoplasm. Dictated by: Amy Hobbs M.D. on 05/11/2020 at 9:37 Approved by: Amy Hobbs M.D. on 05/11/2020 at 9:53
== END ==
PROVIDERS: PCP Nurse Practitioner Family; Referring Provider Radiology Radiation Oncology; Visit Provider Radiology Radiation Oncology
DX: C71.1 Malignant neoplasm of frontal lobe (principal); G93.6 Cerebral edema; Z98.890 Other specified postprocedural states
CPT/HCPCS: 70553

== ENCOUNTER → 2020-07-27 15:19 | Outpatient (CLI) | payer OTHER, SELFPAY ==
--- NOTE | 2020-07-27 15:21 | DI.MRI.S_ITS ---
PROCEDURE: MR HEAD/BRAIN WO/W CON INDICATIONS: Malignant neoplasm of brain, unspecified TECHNIQUE: Noncontrast axial T1 spin echo, axial T2 fast spin echo, sagittal and axial FLAIR, coronal T2 fast spin echo, axial gradient echo, axial diffusion and ADC through the brain. After the administration of contrast, axial and coronal 3D VIBE or T1 spin echo with fat saturation through the brain. COMPARISON: [facility], MR, MR HEAD/BRAIN WO/W CON, 05/11/2020, 8:52. Outside Film, MR, MR BRAIN WITHOUT CONTRAST, 04/05/2020, 20:36. Outside Film, MR, MR BRAIN WITH/WITHOUT CONTRAST, 04/05/2020, 6:27. FINDINGS: Image quality: Excellent. CSF Spaces: Basal cisterns are patent. No extra-axial fluid collections. Ventricles are normal in size and shape. Brain: There is a 1.5 x 2.6 by 2.0 centimeter heterogeneously enhancing mass in the anterior-superior right frontal lobe which is decreased in size compared to May 11, 2020. There is a 1.1 x 1.2 by 1.1 centimeter heterogeneously enhancing mass in the posterior-lateral right frontal lobe which is developed in the interval since prior exam obtained May 11, 2020. There is a 1.0 by 0.7 by 0.8 centimeter heterogeneously enhancing mass in the right parietal operculum at the right frontal-parietal lobe junction which is slightly decreased in size compared to May 11, 2020. No significant postcontrast enhancement identified of periphery of surgical resection cavity in the posterior-superior right parietal lobe. Previously identified small, approximately 6 millimeter focus of postcontrast enhancement involving the anterior right frontal dura is not identified in the current study. There is diffuse, relatively smooth dural postcontrast enhancement which likely represents reactive change. Vasogenic edema is associated with the enhancing masses. Vasogenic edema associated with the anterior-superior right frontal lesion has decreased compared to May 11, 2020. Vasogenic edema associated with the lesion in the right parietal operculum and the posterior-superior right parietal lobe has increased. There is new vasogenic edema associated with the new posterior-lateral right frontal lesion. No midline shift identified. The brainstem appears normal. Diffusion-weighted images demonstrate no acute ischemic insults. No chronic ischemic insults. Normal intravascular flow voids are present. Dural sinuses demonstrate normal postcontrast enhancement. Skull and face: Postsurgical changes compatible with right frontal-parietal and right parietal craniotomies for resection/biopsy of right frontal and right parietal lesions redemonstrated.. Orbits appear normal. Sinuses: Sinuses and mastoids appear clear. IMPRESSION: 1. Stable postsurgical changes. 2. New 1.1 x 1.2 x 1.1 centimeter posterior-lateral right frontal lobe mass. 3. Masses involving the anterior-superior right frontal lobe and the right frontal operculum at the frontal-parietal junction are mildly decreased in size compared to May 11, 2020. 4. No postcontrast enhancement identified at the posterior-superior right parietal surgical resection cavity is suggest residual malignancy in the current study. Dictated by: Kathy Hernandez MD, PhD on 07/27/2020 at 16:50 Approved by: Kathy Hernandez MD, PhD on 07/27/2020 at 17:12
== END ==
PROVIDERS: PCP Nurse Practitioner Family; Referring Provider Radiology Radiation Oncology; Visit Provider Radiology Radiation Oncology
DX: C71.9 Malignant neoplasm of brain, unspecified (principal)
CPT/HCPCS: 70553

== ENCOUNTER → 2020-10-18 16:34 | Outpatient (CLI) | payer MEDICARE, OTHER, SELFPAY ==
--- NOTE | 2020-10-18 | DI.MRI.S_ITS ---
PROCEDURE: MR HEAD/BRAIN WO/W CON INDICATIONS: malignant neoplasm of brain, unspecified TECHNIQUE: Noncontrast axial T1 spin echo, axial T2 fast spin echo, sagittal and axial FLAIR, coronal T2 fast spin echo, axial gradient echo, axial diffusion and ADC through the brain. After the administration of contrast, axial and coronal 3D VIBE or T1 spin echo with fat saturation through the brain. COMPARISON: [facility], CT, CT HEAD/BRAIN WO CON, 03/23/2020, 10:07. Outside Film, CT, CT HEAD WITHOUT CONTRAST, 04/05/2020, 6:19. [facility], CT, CT HEAD/BRAIN WO CON, 04/12/2020, 13:53. Outside Film, MR, MR BRAIN WITHOUT CONTRAST, 04/05/2020, 20:36. Outside Film, CT, CT HEAD WITHOUT CONTRAST, 04/05/2020, 18:09. Outside Film, MR, MR BRAIN WITH/WITHOUT CONTRAST, 04/05/2020, 6:27. [facility], MR, MR HEAD/BRAIN WO/W CON, 07/27/2020, 15:50. [facility], MR, MR HEAD/BRAIN WO/W CON, 05/11/2020, 8:52. FINDINGS: Image quality: Excellent. CSF Spaces: Basal cisterns are patent. No extra-axial fluid collections. Ventricles are normal in size and shape. Brain: There is a 1.2 x 2.1 x 1.8 centimeter heterogeneously enhancing mass in the anterior-superior right frontal lobe which is decreased in size compared to July 27, 2020. There is a 1.1 x 1.6 x 0.9 centimeter heterogeneously enhancing mass in the posterior-lateral right frontal lobe which is increased in size compared to July 27, 2020. There is a 0.8 by 0.5 by 0.6 centimeter heterogeneous enhancing mass in the right parietal lobe which is decreased in size compared to July 27, 2020. Vasogenic edema in the right frontal and parietal lobes adjacent to the enhancing masses has increased small surgical resection cavity in the posterior-superior parietal lobe is stable compared to prior examinations. No postcontrast enhancement is associated with the right parietal surgical resection cavity to suggest residual or recurrent neoplasm in this region. No midline shift. No intracranial bleeds. No abnormal intracranial enhancement. The brainstem appears normal. Diffusion-weighted images demonstrate no acute ischemic insults. No chronic ischemic insults. Normal intravascular flow voids are present. Dural sinuses demonstrate normal postcontrast enhancement. Skull and face: Postsurgical changes compatible with right parietal and right frontal-parietal craniotomies are stable compared to the prior examination.. Orbits appear normal. Sinuses: Sinuses and mastoids appear clear. IMPRESSION: 1. Masses involving the anterior superior right frontal lobe and the left parietal lobe slightly decreased in size compared to July 27, 2020. 2. Mass involving the posterior-lateral right frontal lobe slightly increased in size compared to July 27, 2020. 3. No new abnormal intracranial mass or new suspicious postcontrast enhancement. 3. Stable postsurgical changes. Dictated by: Kathy Hernandez MD, PhD on 10/19/2020 at 9:25 Approved by: Kathy Hernandez MD, PhD on 10/19/2020 at 9:36
== END ==
PROVIDERS: PCP Nurse Practitioner Family; Referring Provider Internal Medicine Hematology & Oncology; Visit Provider Internal Medicine Hematology & Oncology
DX: C71.3 Malignant neoplasm of parietal lobe (principal); C71.1 Malignant neoplasm of frontal lobe; G93.6 Cerebral edema
CPT/HCPCS: 70553; A9579

== ENCOUNTER → 2020-12-26 08:54 | Outpatient (CLI) | payer MEDICARE, OTHER, SELFPAY ==
--- NOTE | 2020-12-26 | DI.MRI.S_ITS ---
PROCEDURE: MR HEAD/BRAIN WO/W CON INDICATIONS: Malignant neoplasm of brain, unspecified TECHNIQUE: Noncontrast axial T1 spin echo, axial T2 fast spin echo, sagittal and axial FLAIR, coronal T2 fast spin echo, axial gradient echo, axial diffusion and ADC through the brain. After the administration of contrast, axial and coronal T1 spin echo with fat saturation through the brain. COMPARISON: [facility], CT, CT HEAD/BRAIN WO CON, 03/23/2020, 10:07. Outside Film, MR, MR BRAIN WITH/WITHOUT CONTRAST, 04/05/2020, 6:27. Outside Film, MR, MR BRAIN WITHOUT CONTRAST, 04/05/2020, 20:36. [facility], CT, CT HEAD/BRAIN WO CON, 04/12/2020, 13:53. [facility], MR, MR HEAD/BRAIN WO/W CON, 05/11/2020, 8:52. [facility], MR, MR HEAD/BRAIN WO/W CON, 07/27/2020, 15:50. [facility], MR, MR HEAD/BRAIN WO/W CON, 10/18/2020, 16:55. FINDINGS: Image quality: Excellent. CSF spaces: Basal cisterns are patent. No extra-axial fluid collections. Ventricles are normal in size and shape. Brain: Rim enhancing masses are again seen. Relatively prominent surrounding vasogenic edema is seen, which is similar to the prior. Right frontal lobe superiorly, 2.3 x 1.4 x 1.7 cm, prior 1.2 x 2.1 x 1.8 cm Right frontal lobe laterally 1.6 x 1 x 1 cm, 1.1 x 1.6 x 0.9 Right frontal parietal region, 0.7 x 0.4 x 0.4 cm, prior 0.8 x 0.5 x 0.6 No significant mass effect can be seen. No new intracranial masses can be seen. Stable resection/biopsy changes can be seen involving the parietal occipital region. No midline shift. There is cerebral volume loss for age. There is periventricular white matter chronic small vessel ischemic change. The brainstem appears normal. Diffusion-weighted images demonstrate no acute ischemic insults. No chronic ischemic insults. Normal intravascular flow voids are present. Skull and face: Craniotomy changes are seen on the right. Calvarial marrow is normal in signal. Orbits appear normal. Sinuses: Sinuses and mastoids appear clear. IMPRESSION: 3 right-sided rim enhancing masses are seen, which are not significantly changed compared to the 10/18/2020 examination. No new masses are detected. Stable postoperative changes. Dictated by: Chaitanya Romero M.D. on 12/26/2020 at 9:35 Approved by: Chaitanya Romero M.D. on 12/26/2020 at 9:45
== END ==
PROVIDERS: PCP Nurse Practitioner Family; Referring Provider Internal Medicine Hematology & Oncology; Visit Provider Internal Medicine Hematology & Oncology
DX: C71.1 Malignant neoplasm of frontal lobe (principal)
CPT/HCPCS: 70553

== ENCOUNTER → 2021-02-08 07:23 | Outpatient (CLI) | payer MEDICARE, OTHER, SELFPAY ==
--- NOTE | 2021-02-08 | DI.ECHO.S_ITS ---
[facility] +---------+ : : [address] [place] : : : : [id number] : : : : Phone: [phone]+ Echocardiogram Report + + :Name: KAUSHIK SPENCER Study Date: 02/08/2021 Height: 70 in : :[facility] ReadingLocation: Weight: 272 lb : : Gender: Male BSA: 2.4 m2 : :: 1955 Age: 65 yrs BP: 133/96 mmHg: :Reason For Study: DYSPNEA : :Ordering Physician: GILDA, : :DEDE Mancini Performed By: Liz Owen : :Referring: DEDE VINES : + + Interpretation Summary The ejection fraction is estimated to be 55-60%. Diastolic parameters suggest probable normal left ventricular diastolic function and normal filling pressures. The right ventricle is normal in size and function. No significant valvular abnormalities. Unable to estimate PASP. Procedure: A two-dimensional transthoracic echocardiogram with color flow and Doppler was performed. The study quality was technically adequate. There is no prior echocardiogram noted for this patient. The patient was in sinus rhythm with heart rates between 68-76 bpm during the exam. Left Ventricle: The left ventricle is normal in size and wall thickness. The ejection fraction is estimated to be 55-60%. Diastolic parameters suggest probable normal left ventricular diastolic function and normal filling pressures. Right Ventricle: The right ventricle is normal in size and function. Atria: The left atrial size is normal. Right atrial size is normal. There is no Doppler evidence for an interatrial shunt. Mitral Valve: The mitral valve is normal in structure and function. There is trace mitral regurgitation. Aortic Valve: The aortic valve is trileaflet. The aortic valve opens well. There is no aortic valve stenosis. No aortic regurgitation is present. Tricuspid Valve: The tricuspid valve is normal in structure and function. There is trace tricuspid regurgitation. Pulmonary artery pressures cannot be estimated because of the lack of a measurable TR jet velocity. Pulmonic Valve: The pulmonic valve leaflets are thin and pliable; valve motion is normal. There is a trace or physiologic amount of pulmonic regurgitation. Great Vessels: The aortic root is normal size. The dimensions of the ascending aorta are normal. The IVC is of normal diameter and collapses less than 50% with a sniff. This suggests a right atrial pressure of 8 mm Hg. Pericardium/ Pleura There is no pericardial effusion. There is no pleural effusion. MMode/2D Measurements & Calculations LVIDd: 4.6 cm LVOT diam: 2.3 cm LVIDs: 3.0 cm Ao root diam: 3.4 cm FS: 34.1 % asc Aorta Diam: 3.3 cm IVSd: 1.0 cm Ao Arch Diam (Prox Trans): 2.3 cm LVPWd: 0.89 cm LV lunsford. diameter/BSA (cm/m^2): 1.9 LV sys. diameter/BSA (cm/m^2): 1.3 LA A2 area: 19.0 cm2 RA long axis: 4.9 cm LA A4 area: 19.9 cm2 RA area: 18.1 cm2 LA length (vol): 5.7 cm RA vol: 57.0 ml LA vol: 56.4 ml RA : 24.0 ml/m2 LA vol index: 23.7 ml/m2 IVC diam: 1.8 cm RVD1 (basal): 3.5 cm TAPSE: 1.9 cm Doppler Measurements & Calculations Ao V2 max: 111.0 cm/sec LVOT Max Thiago: 92.2 cm/sec Ao V2 mean: 76.0 cm/sec LV V1 max P.4 mmHg Ao max P.9 mmHg LV V1 VTI: 18.3 cm Ao mean P.6 mmHg CHERYL(I,D): 3.0 cm2 Ao V2 VTI: 24.9 cm CHERYL(V,D): 3.4 cm2 sev ratio: 0.74 CHERYL indexed to BSA (cm^2/m^2): 1.3 MV E max thiago: 58.2 cm/sec PA V2 max: 93.0 cm/sec MV A max thiago: 53.3 cm/sec PA V2 mean: 63.5 cm/sec MV E/A: 1.1 PA mean P.8 mmHg Med Peak E' Thiago: 5.7 cm/sec PA pr(Accel): 46.5 mmHg E/E' med: 10.3 Lat Peak E' Thiago: 7.0 cm/sec E/E' lat: 8.4 E/e' average: 9.3 MV dec time: 0.24 sec SV(LVOT): 75.0 ml Reading Physician:02:08 PM
== END ==
PROVIDERS: PCP Nurse Practitioner Family; Referring Provider Internal Medicine Cardiovascular Disease; Visit Provider Internal Medicine Cardiovascular Disease
DX: R06.00 Dyspnea, unspecified (principal)
CPT/HCPCS: 93306

== ENCOUNTER → 2021-02-27 10:40 | Outpatient (CLI) | payer MEDICARE, OTHER, SELFPAY ==
--- NOTE | 2021-02-27 10:41 | DI.MRI.S_ITS ---
PROCEDURE: MR HEAD/BRAIN WO/W CON INDICATIONS: glioblastoma, right lobe TECHNIQUE: Noncontrast axial T1 spin echo, axial T2 fast spin echo, sagittal and axial FLAIR, coronal T2 fast spin echo, axial gradient echo, axial diffusion and ADC through the brain. After the administration of contrast, axial and coronal T1 spin echo with fat saturation through the brain. COMPARISON: [facility], MR, MR HEAD/BRAIN WO/W CON, 10/18/2020, 16:55. [facility], MR, MR HEAD/BRAIN WO/W CON, 07/27/2020, 15:50. [facility], MR, MR HEAD/BRAIN WO/W CON, 05/11/2020, 8:52. [facility], MR, MR HEAD/BRAIN WO/W CON, 12/26/2020, 9:20. FINDINGS: Image quality: Excellent. CSF spaces: Basal cisterns are patent. No extra-axial fluid collections. Ventricles are normal in size and shape. Brain: Resection change can be seen involving the right frontal lobe superiorly and anteriorly. Resection change is also seen involving the right frontoparietal region superiorly. Hemosiderin deposition can be seen within the postoperative areas. Moderate brain edema can be seen throughout the right frontal lobe, which is similar to the prior examination. Rim enhancing masses are again seen, which measure as follows: Right anterior frontal lobe superiorly, 2.1 x 1.4 x 1.5 cm, prior 2.3 x 1.4 x 1.7 cm Right mid frontal lobe laterally, 1.5 x 0.8 by 0.9 cm, prior 1.6 x 1.1 x 1.1 cm Right posterior frontal lobe inferiorly, 0.7 x 0.5 x 0.5 cm, prior 0.7 x 0.4 x 0.4 cm No new masses or areas of abnormal enhancement can be seen. No midline shift. There is cerebral volume loss for age. There is periventricular white matter chronic small vessel ischemic change. The brainstem appears normal. Diffusion-weighted images demonstrate no acute ischemic insults. Normal intravascular flow voids are present. Skull and face: Right-sided craniotomy changes are seen. Calvarial marrow is normal in signal. Orbits appear normal. Sinuses: Sinuses and mastoids appear clear. IMPRESSION: 3 right frontal lobe rim enhancing masses are again seen, which overall measure slightly smaller on the current study than on the 12/26/2020 examination. Stable resection changes. Stable right frontal lobe brain edema. Dictated by: Chaitanya Romero M.D. on 02/27/2021 at 10:35 Approved by: Chaitanya Romero M.D. on 02/27/2021 at 10:42
== END ==
PROVIDERS: PCP Nurse Practitioner Family; Referring Provider Internal Medicine Hematology & Oncology; Visit Provider Internal Medicine Hematology & Oncology
DX: C71.1 Malignant neoplasm of frontal lobe (principal); G93.6 Cerebral edema
CPT/HCPCS: 70553; A9579

== ENCOUNTER → 2021-05-01 16:30 | Outpatient (CLI) | payer MEDICARE, OTHER, SELFPAY ==
--- NOTE | 2021-05-01 16:31 | DI.MRI.S_ITS ---
PROCEDURE: MR HEAD/BRAIN WO/W CON INDICATIONS: Glioblastoma TECHNIQUE: Noncontrast axial T1 spin echo, axial T2 fast spin echo, sagittal and axial FLAIR, coronal T2 fast spin echo, axial gradient echo, axial diffusion and ADC through the brain. After the administration of contrast, axial and coronal 3D VIBE or T1 spin echo with fat saturation through the brain. COMPARISON: [facility], MR, MR HEAD/BRAIN WO/W CON, 02/27/2021, 11:00. FINDINGS: These images demonstrate new enhancing tumor in the optic chiasm extending inferiorly into the bilateral optic nerves, slightly more pronounced on the left. The new mass measures approximately 1.6 x 1.9 cm maximum axial dimension (series 13, image 63), and approximately 1.4 cm maximum craniocaudal dimension (series 14, image 90 and series 15, image 129). There is nonenhancing FLAIR signal abnormality corresponding to the mass which extends posteriorly and superiorly along the fo optic tracts, as well as anteriorly into the optic nerves producing slight expansion. Previously described anterior right frontal lobe mass is unchanged in size. Another smaller enhancing mass in the lateral right frontal lobe is not significantly changed. A nonenhancing FLAIR signal abnormality is increased in extent, now involving the fornices and optic chiasm and posterior pre CT asthmatic optic nerves. No significant change in the FLAIR signal abnormality extend otherwise. No findings of mass effect or midline shift. The ventricular system and basilar cisterns are patent. No restricted diffusion to indicate recent ischemia. The major intravascular flow-related signal voids are maintained. No unexpected susceptibility artifact. IMPRESSION: New enhancing tumor in the optic chiasm and posterior pre chiasmatic optic nerves. Increased extent of nonenhancing FLAIR signal abnormality adjacent to the optic chiasm along the optic tracts and fornices. Stable enhancing right frontal lobe masses, mostly representing treatment change although there is very likely to be a component of viable nonenhancing tumor adjacent to the lesions. Dictated by: Emmanuel Cardenas M.D. on 05/02/2021 at 9:53 Approved by: Emmanuel Cardenas M.D. on 05/02/2021 at 10:05
== END ==
PROVIDERS: PCP Nurse Practitioner Family; Referring Provider Internal Medicine Hematology & Oncology; Visit Provider Internal Medicine Hematology & Oncology
DX: C71.8 Malignant neoplasm of overlapping sites of brain (principal)
CPT/HCPCS: 70553

== ENCOUNTER → 2021-05-22 15:34 | Outpatient (CLI) | payer MEDICARE, OTHER, SELFPAY ==
[2021-05-22 16:24] LABS: COVID19 -Nasal RAPID Negative (Negative)
== END ==
PROVIDERS: PCP Nurse Practitioner Family; Visit Provider Surgery
DX: Z20.822 Contact with and (suspected) exposure to COVID-19 (principal)
CPT/HCPCS: 87635; C9803

== ENCOUNTER 2021-05-25 10:44 | Day surgery (SDC) | payer MEDICARE, OTHER, SELFPAY ==
[2021-05-25 11:20] VITALS: BP 129/91; PULSE 70; RESP 16; TEMP 36.9; O2SAT 94; BMI 40.1
[2021-05-25] MEDS: ACETAMINOPHEN 325 MG TABLET 975 MG PO (11:37)
[2021-05-25] MEDS: GABAPENTIN 300 MG CAPSULE PO (11:37)
[2021-05-25] MEDS: LACTATED RINGERS 1,000 ML 42 ML IV (11:39)
--- NOTE | 2021-05-25 11:56 | PM.HP.1 ---
History of Present Illness History of Present Illness Date Patient Seen: 05/25/21 Time Patient Seen: 11:56 Chief complaint: PORT-A-CATH Narrative: Nini is a 65-year-old man with glioblastoma multiforme. He is in need of a Port-A-Cath for chemotherapy. His 1st session is later today. He has never had surgery on his clavicle or neck. Never had a clavicle fracture. Patient History Medical History (Updated 05/24/21 @ 09:43 by Casandra Mcfarlane RN) Blind left eye (~04/30/21) Blurred vision, right eye Borderline diabetes mellitus Chronic back pain History of radiation therapy Surgical History (Updated 05/24/21 @ 09:29 by Casandra Mcfarlane RN) Hx of cholecystectomy Hx of craniotomy (~04/05/20) Family & Social History Family History (Updated 02/13/21 @ 15:47 by Tish Christie MD) Mother Hypertension Diabetes mellitus Brother Hypertension Hyperlipidemia Heart attack Sister Breast cancer Father Hereditary hemorrhagic telangiectasia Social History: household members spouse Tobacco & Substance use: Smoking Status Former smoker alcohol intake former alcohol intake frequency other Substance Use Type does not use Meds Home Medications and Allergies Home Medications Medication Instructions Recorded Confirmed Type levetiracetam 1,000 mg tablet 1,500 mg PO BID 04/12/20 05/25/21 History (Keppra) sennosides 8.6 mg tablet (Senna 8.6 mg PO BEDTIME 04/12/20 05/04/21 History Lax) acetaminophen 500 mg tablet 1,000 mg PO Q6H PRN 02/13/21 05/25/21 History triamcinolone acetonide 0.5 % 1 applic TOPICAL TID #15 g 02/24/21 05/04/21 Rx topical cream dexamethasone 2 mg tablet 2 mg PO Q12HR #60 tab 05/18/21 05/25/21 Rx Allergies Allergy/AdvReac Type Severity Reaction Status Date / Time No Known Drug Allergies Allergy Verified 03/23/20 10:23 Exam Vital Signs (past 8 hours): - 05/25/21 11:20 Temperature 98.4 F Pulse Rate 70 Respiratory Rate 16 Blood Pressure 129/91 H Pulse Oximetry 94 Oxygen Delivery Method Room Air Const General: No in distress Chest Chest: normal inspection of the chest Resp Effort & Inspection: normal respiratory effort Assessment & Plan Assessment and plan (1) Glioblastoma multiforme: Status: Acute Plan We discussed the risks and benefits of Port-A-Cath placement. He understands the risks and wishes to proceed. We will leave the catheter accessed for so he can have chemotherapy later today. COVID-19 COVID-19 status: Negative Result date/Date tested (Pos, Neg/Pending): 05/24/21 Time Spent With Patient Critical Care time: I spent a total of [] minutes of critical care time on this patient's care today; this time is exclusive of procedural time.
[2021-05-25] MEDS: CEFAZOLIN 2 GM/20 ML SYRINGE IV (12:21)
--- NOTE | 2021-05-25 12:23 | SUR.OPER ---
Supine on padded OR bed, head on pillow, arms padded and tucked at sides, legs uncrossed, safety belt at thigh, tape over blanket over lower legs .
[2021-05-25] MEDS: BUPIVACAINE 0.5% (PF) VIAL 30 ML INJ (12:55)
--- NOTE | 2021-05-25 13:23 | DI.RAD.S_ITS ---
PROCEDURE: XR CHEST 1V INDICATIONS: RT PORT PLACEMENT TECHNIQUE: One view of the chest was acquired. COMPARISON: [facility], CT, CT CHEST ABD PEL W CON, 03/23/2020, 11:23. FINDINGS: Surgical changes and devices: Right IJ chest port has been placed with tube tip projected over the lower SVC. Lungs and pleura: Lung volumes are low and there is mild blunting of the costophrenic angles and bibasilar airspace opacities. No pneumothorax. Mediastinum: Mediastinal contours appear normal. Heart size is normal. Bones and chest wall: No suspicious bony lesions. Overlying soft tissues appear unremarkable. IMPRESSION: 1. Placement of right IJ CVL and no pneumothorax is seen. 2. Blunting the costophrenic angles bilaterally suggesting small pleural effusions and/or pleural scarring. 2. Bibasilar airspace opacities consistent with atelectasis versus consolidation. Dictated by: Ivan Burkett A Interpreted: Cindy Ferguson MD on 05/25/2021 at 14:35 Approved by: Cindy Ferguson M.D. on 05/25/2021 at 20:42
[2021-05-25 13:42] VITALS: BP 123/73; PULSE 94; RESP 14; TEMP 36.5; O2SAT 89
--- NOTE | 2021-05-25 13:42 | PM.OP.1 ---
Operative Date/Time/Diagnoses Date of procedure: 05/25/21 Time of procedure: 13:42 Pre-op diagnosis: Glioblastoma multiforme Post-op diagnosis: same Procedure & Clinicians Procedure: MediPort Same procedure as scheduled: Yes Indications: Glioblastoma multiforme Surgeon: George Zheng Anesthesia Type: General Operative Notes Estimated Blood Loss (mL): 10 Procedure in detail: The patient was brought to the operating room, placed on the table in the supine position with the arms tucked. Ancef was administered. Anesthesia was induced via LMA. A time-out was performed. The right chest and neck were prepped and draped in the usual fashion. An ultrasound was used to identify the right internal jugular vein. The vein was noted to be patent. An image was saved and printed and placed in the chart. The right internal jugular vein was accessed via the Seldinger technique under ultrasound guidance. The guidewire was inserted into the superior vena cava. C-arm was used to confirm proper position of the guidewire in the superior vena cava and no ectopy was noted. The needle was removed and the wire was clamped to the drape. Next, a port pocket was created just inferior to the medial clavicle using a 15 blade scalpel. Dissection was carried down to the pectoral fascia. A subcutaneous pocket was created using a combination of cautery and blunt dissection. Next, the port which was primed with injectable saline, was secured to the fascia with 3-0 PDS sutures left untied and clamped. The neck incision was extended with an 11 blade scalpel to approximately 5 mm. The dilator and peel-away sheath were inserted over the wire without resistance. The catheter was passed from the neck incision to the chest incision in the subcutaneous tissue using the tunnelling device. The wire and dilator were then removed and the catheter inserted through the peel-away sheath to deliver it into the superior vena cava. The depth of the device was checked using the C-arm and the tip of the device was noted to be in the distal superior vena cava. The exterior portion of the catheter was then trimmed and attached to the port using the strain relief collar. A final image showed good position of the catheter with no kinks. The port was then tucked into the subcutaneous pocket and the sutures were tied to secure the device. The port was then accessed using the Barry needle and it was noted that the device vlad and flushed easily without resistance. Approximately 4 mL of heparinized saline were injected into the device. The skin incisions were closed with 3-0 Vicryl and 4-0 Monocryl. Steri-Strips were applied patient was awakened and brought to recovery room EBL: 5 mL Ultrasound: The right internal jugular vein was patent. The right carotid artery was visualized adjacent to the vein. Venipuncture was visualized in real-time using the ultrasound. Fluoroscopy: The device was positioned appropriately with the distal end of the catheter near the atriocaval junction. There were no kinks in the catheter. Post-operative Condition: stable Disposition: PACU
[2021-05-25 13:46] VITALS: BP 128/73; PULSE 91; RESP 15; O2SAT 97
[2021-05-25 13:50] VITALS: BP 123/64; PULSE 82; RESP 20; TEMP 36.2; O2SAT 96
[2021-05-25 14:06] VITALS: BP 124/82; PULSE 72; RESP 18; TEMP 36.5; O2SAT 96
[2021-05-25 14:15] VITALS: BP 124/74; BP 124/75; PULSE 77; PULSE 80; RESP 12; RESP 16; TEMP 36.5; TEMP 36.9; O2SAT 95; O2SAT 98
== END 2021-05-25 14:56 | disposition home or self-care (01) ==
PROVIDERS: PCP Nurse Practitioner Family; Referring Provider Surgery; Visit Provider Surgery
PROC: (CPT 36561; principal; 2021-05-25 11:45)
DX: Z51.11 Encounter for antineoplastic chemotherapy (principal); C71.8 Malignant neoplasm of overlapping sites of brain
CPT/HCPCS: 36561; 36415; 71045; 76000; 80053; 82962; 85025; 96413; 96415; 96523; C1788; J0690; J1644; J2405; J2704; Q5118

== ENCOUNTER 2021-05-27 17:04 | Inpatient (IN) | payer MEDICARE, OTHER, SELFPAY ==
[2021-05-27] VITALS (13 sets, daily range): BP systolic 138–162; BP diastolic 75–89; PULSE 77–95; RESP 9–27; TEMP 37.7–38.1; O2SAT 92–97; BMI 40.1
--- NOTE | 2021-05-27 17:31 | ED.WEAKNESS ---
HPI - Weakness General Chief complaint: Weakness Stated complaint: weakness in legs Time Seen by Provider: 05/27/21 17:19 Source: patient Mode of arrival: EMS History of Present Illness HPI Narrative: 65M former smoker with a history of glioblastoma managed by Dr. Pratik hardy. Patient presents with his in the chief complaint of fever and generalized weakness over the course of the day. He states that he went to bed in his normal state of health and woke up this morning and found himself to be generally unwell. 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 He denies any focal findings such as numbness, tingling or unilateral weakness. He states he feels generally weak and feverish and has had trouble getting around. He denies nausea or vomiting. He denies any pain. He denies any chest pain or shortness of breath. He denies any constipation or diarrhea. He denies dysuria, frequency or urgency. He states that he just started up chemo again on which he will receive every 3 weeks. Related Data Home Medications Medication Instructions Recorded Confirmed levetiracetam 1,000 mg tablet 1,500 mg PO BID 04/12/20 05/25/21 (Keppra) sennosides 8.6 mg tablet (Senna 8.6 mg PO BEDTIME 04/12/20 05/04/21 Lax) acetaminophen 500 mg tablet 1,000 mg PO Q6H PRN 02/13/21 05/25/21 Previous Rx's Medication Instructions Recorded triamcinolone acetonide 0.5 % 1 applic TOPICAL TID #15 g 02/24/21 topical cream dexamethasone 2 mg tablet 2 mg PO Q12HR #60 tab 05/18/21 hydrocodone 5 mg-acetaminophen 325 1 tab PO Q8H PRN #10 tab 05/25/21 mg tablet Allergies Allergy/AdvReac Type Severity Reaction Status Date / Time No Known Drug Allergies Allergy Verified 03/23/20 10:23 Review of Systems Review of Systems Narrative: GENERAL: See HPI HEENT: Denies sinus pain, ear pain, sore throat, difficulty swallowing, dizziness. RESPIRATORY: Denies dyspnea, cough, wheezing, hemoptysis, sputum. CARDIOVASCULAR: Denies chest pain, palpitations, orthopnea, edema, GASTROINTESTINAL: Denies nausea, vomiting, abdominal pain, diarrhea, constipation, melena. : Denies dysuria, frequency, incontinence, hematuria, urinary retention. MUSCULOSKELETAL: denies weakness, joint pain, or bony pain SKIN: Denies rash, skin lesions, or other NEUROLOGIC: See HPI PSYCHIATRIC: No concerning psychosocial issues. 12 point review of systems is negative except for those stated above Patient History Medical History Blind left eye (~04/30/21) Blurred vision, right eye Borderline diabetes mellitus Chronic back pain History of radiation therapy Surgical History Hx of cholecystectomy Hx of craniotomy (~04/05/20) Family History Mother Hypertension Diabetes mellitus Brother Hypertension Hyperlipidemia Heart attack Sister Breast cancer Father Hereditary hemorrhagic telangiectasia Social History household members: spouse Smoking Status: Former smoker alcohol intake: former substance use type: does not use Smoking Status: Former smoker alcohol intake frequency: other Substance Use Type: does not use Exam Narrative Exam Narrative: GENERAL: [65 year old patient appears stated age. Well-developed patient, in obvious distress, clearly feeling unwell generally weak. GCS 15 HEAD: Atraumatic. Normocephalic. EYES: Pupils equal round and reactive. Extraocular motions intact. No scleral icterus. No injection or drainage. ENT: Nose without bleeding, purulent drainage. Throat without erythema, tonsillar hypertrophy or exudate. Airway patent. NECK: Trachea midline. Non tender CARDIOVASCULAR: Regular rate and rhythm without murmurs, gallops, or rubs. RESPIRATORY: Clear to auscultation. Breath sounds equal bilaterally. No wheezes, rales, or rhonchi. GASTROINTESTINAL: Abdomen soft, non-tender, nondistended. EXTREMITIES: No edema or joint tenderness. BACK: Nontender without deformity or crepitance. No flank tenderness. NEURO: AOx3. Cranial nerves 2-12 grossly intact SKIN: No rash or erythema of visible areas Initial Vital Signs Initial Vital Signs: Vital Signs Pulse Rate 94 H 05/27/21 17:07 Pulse Oximetry 92 05/27/21 17:07 Course Orders Ordered: ED Orders 05/27/21 17:14 EKG-12 Lead Stat 05/27/21 17:32 Chest [XR chest 1V] Stat COVID19 -Nasal swab/Pre-Proc Stat Complete Blood Count AUTO DIFF Stat Lactate (Lactic Acid) Stat Urine Drug Screen, Rapid Stat 05/27/21 17:36 CT head/brain wo con Stat 05/27/21 17:40 Blood Culture Stat Comprehensive Metabolic Panel Stat Procalcitonin Stat Troponin & CK Cardiac Panel Stat 05/27/21 19:00 Urine Microscopic Stat Sodium Chloride (Normal Saline 0.9%) 1,000 mls @ 150 mls/hr IV CONT ROLO Last Admin: 05/27/21 18:19 Dose: 150 mls/hr Documented by: Lactated Ringer's (Lactated Ringers) 2,190 mls @ 730 mls/hr 30 ml/kg infuse over 3 hr (2190 ml) IV NOW ONE Stop: 05/27/21 21:32 Last Admin: 05/27/21 18:41 Dose: 730 mls/hr Documented by: Vancomycin HCl/Dextrose (Vancomycin) 2,000 mg in 400 mls @ 200 mls/hr IV NOW ONE Stop: 05/27/21 20:38 Last Admin: 05/27/21 19:40 Dose: 200 mls/hr Documented by: Discontinued Medications Ceftriaxone Sodium 2,000 mg/ (Sodium Chloride) 100 mls @ 200 mls/hr IV NOW ONE Stop: 05/27/21 18:40 Last Infusion: 05/27/21 19:40 Dose: Infused Documented by: Levetiracetam (Levetiracetam 250 Mg Tablet) 1,500 mg PO NOW ONE Stop: 05/27/21 17:33 Last Admin: 05/27/21 18:18 Dose: 1,500 mg Documented by: Consultations Consultation #1: Hospitalist happy to accept Vital Signs Vital signs: Vital Signs - 8 hr 05/27/21 17:07 05/27/21 17:08 05/27/21 17:12 Temperature 100.5 F H Pulse Rate 94 H 94 H 94 H Respiratory Rate 27 H 16 Blood Pressure 146/82 H 146/82 H Pulse Oximetry 92 92 93 05/27/21 17:30 05/27/21 18:20 05/27/21 18:22 Temperature Pulse Rate 88 95 H 93 H Respiratory Rate 25 H 25 H Blood Pressure 139/79 Pulse Oximetry 93 94 94 05/27/21 18:30 05/27/21 19:00 05/27/21 19:30 Temperature Pulse Rate 88 89 82 Respiratory Rate 24 19 11 L Blood Pressure 138/89 Pulse Oximetry 94 96 05/27/21 19:31 Temperature Pulse Rate 83 Respiratory Rate 9 L Blood Pressure 162/83 H Pulse Oximetry 96 MDM - Weakness Medical Records Medical records narrative: 65-year-old male with known glioblastoma is immune compromised on chemotherapy with recent line placement. Presents generalized weakness and signs of sepsis though no obvious etiology at the time of presentation. Chest x-ray is clear, urine shows no sign of infection, patient is cultured. Line is exam and not obviously infected. Patient requires IV antibiotics, ongoing evaluation culture results. Lab Data Attestation: I reviewed the patient's lab results. Result diagrams: 05/27/21 17:40 05/27/21 17:40 Labs: Lab Results 05/27/21 05/27/21 05/27/21 Range/Units 17:40 17:40 17:40 WBC 6.0 (4.5-11.0) X10^3/uL RBC 5.18 (4.5-5.9) X10^6/uL Hgb 15.1 (13.5-17.5) g/dL Hct 44.7 (41-53) % MCV 86.3 (80-100) fL MCH 29.2 (26-34) PG MCHC 33.8 (30-36) % RDW 13.3 (11.6-14.8) % Plt Count 154 (150-400) X10^3/uL Neut % (Auto) 72.0 (50-75) % Lymph % (Auto) 19.7 L (25-40) % [place] % (Auto) 5.6 (3-14) % Eos % (Auto) 2.3 (2-4) % Baso % (Auto) 0.4 (0-2) % Neut # (Auto) 4300 (2144-1679) /uL Lymph # (Auto) 1200 (7046-9052) /uL [place] # (Auto) 300 (0-900) /uL Eos # (Auto) 100 (0-450) /uL Baso # (Auto) 0 (0-100) /uL Sodium 141 (137-145) mmol/L Potassium 4.1 (3.4-5.1) mmol/L Chloride 108 H (98-107) mmol/L Carbon Dioxide 26 (22-32) mmol/L BUN 17 (9-20) mg/dL Creatinine 0.67 (0.66-1.25) mg/dL Estimated GFR > 60.0 (>60) mL/min BUN/Creatinine Ratio 25.4 H (6-22) Glucose 146 H (80-110) mg/dL Lactate 1.7 (0.7-2.1) mmol/L Calcium 8.9 (8.4-10.2) mg/dL Total Bilirubin 0.8 (0.2-1.3) mg/dL AST 29 (17-59) IU/L ALT 33 (<50) IU/L Alkaline Phosphatase 53 (38-126) U/L Total Creatine Kinase 21 L (55-170) U/L CK-MB (CK-2) TNP CK-MB (CK-2) Rel Index TNP Troponin I < 0.012 (0.01-0.034) ng/mL Total Protein 7.3 (6.3-8.2) g/dL Albumin 4.3 (3.5-5.0) g/dL Globulin 3.0 (1.7-4.1) g/dL Albumin/Globulin Ratio 1.4 (1.0-2.8) Procalcitonin 0.06 (<0.5) ng/mL Urine RBC (0-5/HPF) Urine WBC (0-5/HPF) Urine Bacteria (None) Ur Culture Indicated? U Opiates 300ng/mL cut (Negative) Ur Oxycodone Screen (Negative) Urine Methadone Screen (Negative) Ur Barbiturates Screen (Negative) U Tricyclic Antidepress (Negative) Ur Phencyclidine Scrn (Negative) Ur Amphetamines Screen (Negative) U Methamphetamines Scrn (Negative) Ur MDMA Scrn (Ecstasy) (Negative) U Benzodiazepines Scrn (Negative) Urine Cocaine Screen (Negative) U Marijuana (THC) Screen (Negative) SARS-CoV-2 (PCR) (Negative) 05/27/21 05/27/21 05/27/21 Range/Units 17:45 19:00 19:00 WBC (4.5-11.0) X10^3/uL RBC (4.5-5.9) X10^6/uL Hgb (13.5-17.5) g/dL Hct (41-53) % MCV (80-100) fL MCH (26-34) PG MCHC (30-36) % RDW (11.6-14.8) % Plt Count (150-400) X10^3/uL Neut % (Auto) (50-75) % Lymph % (Auto) (25-40) % [place] % (Auto) (3-14) % Eos % (Auto) (2-4) % Baso % (Auto) (0-2) % Neut # (Auto) (7786-5438) /uL Lymph # (Auto) (7612-6618) /uL [place] # (Auto) (0-900) /uL Eos # (Auto) (0-450) /uL Baso # (Auto) (0-100) /uL Sodium (137-145) mmol/L Potassium (3.4-5.1) mmol/L Chloride (98-107) mmol/L Carbon Dioxide (22-32) mmol/L BUN (9-20) mg/dL Creatinine (0.66-1.25) mg/dL Estimated GFR (>60) mL/min BUN/Creatinine Ratio (6-22) Glucose (80-110) mg/dL Lactate (0.7-2.1) mmol/L Calcium (8.4-10.2) mg/dL Total Bilirubin (0.2-1.3) mg/dL AST (17-59) IU/L ALT (<50) IU/L Alkaline Phosphatase (38-126) U/L Total Creatine Kinase (55-170) U/L CK-MB (CK-2) CK-MB (CK-2) Rel Index Troponin I (0.01-0.034) ng/mL Total Protein (6.3-8.2) g/dL Albumin (3.5-5.0) g/dL Globulin (1.7-4.1) g/dL Albumin/Globulin Ratio (1.0-2.8) Procalcitonin (<0.5) ng/mL Urine RBC None seen (0-5/HPF) Urine WBC None seen (0-5/HPF) Urine Bacteria None seen (None) Ur Culture Indicated? Cult not indicated U Opiates 300ng/mL cut Negative (Negative) Ur Oxycodone Screen Negative (Negative) Urine Methadone Screen Negative (Negative) Ur Barbiturates Screen Negative (Negative) U Tricyclic Antidepress Negative (Negative) Ur Phencyclidine Scrn Negative (Negative) Ur Amphetamines Screen Negative (Negative) U Methamphetamines Scrn Negative (Negative) Ur MDMA Scrn (Ecstasy) Negative (Negative) U Benzodiazepines Scrn Negative (Negative) Urine Cocaine Screen Negative (Negative) U Marijuana (THC) Screen Negative (Negative) SARS-CoV-2 (PCR) Negative (Negative) Point of Care Testing Glucose POC 141 Urine Dip Bedside Urine Glucose Negative Bedside Urine Bilirubin - Negative Bedside Urine Ketone - Negative Urine Specific [place] 1.015 Bedside Urine Occult Blood - Negative Bedside Urine pH 7.5 Bedside Urine Protein +/- 15 Bedside Urine Urobilinogen +/- 1mg Bedside Urine Nitrite - Negative Bedside Urine Leukocytes - Negative Esterase Imaging Data CT scan - head: Radiologist Impression: Launch?Image [address] [address] [address] Scan Report Signed Patient: Nini Jensen MR#: [id number] : 1955 Acct:[id number] Age/Sex: 65 / M Date of Service: 05/27/21 Loc: ED Accession Number: [id number] ?? Procedure: CT head/brain wo con Ordering Provider: Piyush Reynolds D.O. PROCEDURE:? CT HEAD/BRAIN WO CON ? INDICATIONS:? altered, weakness ? TECHNIQUE:? Noncontrast 4.5 mm thick angled axial sections acquired from the foramen magnum to the vertex, with coronal and sagittal reformats.? For radiation dose reduction, the following was used:? automated exposure control, adjustment of mA and/or kV according to patient size.? ? COMPARISON:? [facility], MR, MR HEAD/BRAIN WO/W CON, 05/01/2021, 17:18.? [facility], MR, MR HEAD/BRAIN WO/W CON, 02/27/2021, 11:00.? [facility], CT, CT HEAD/BRAIN WO CON, 04/12/2020, 13:53. ? FINDINGS:? Image quality:? Excellent.? ? CSF spaces:? Basal cisterns are patent.? No extra-axial fluid collections.? Ventricles are normal in size and shape.? ? Brain:? No midline shift.? There is masslike prominence within the optic chiasm, better appreciated on MRI brain of 05/01/2021.? There is a small linear area of increased density along the subdural space of the right frontal lobe.? This was present on 04/12/2020 CT likely related to postoperative hemorrhage and still appeared present to a lesser degree on 05/01/2021 MRI brain..? There is low-attenuation in the right frontal lobe consistent with previously identified tumor.? There are several foci of increased density within this region.? This area corresponded to hypointensity on gradient sequence on prior MRI.? Lutz-white matter interface is normal.? ? Skull and face:? Calvarium demonstrates postsurgical change. ? Sinuses:? Visualized sinuses and mastoids are clear.? ? IMPRESSION:? ? Right frontal hypodensity consistent with known area of tumor.? There are several foci of increased density identified which are suspicious for calcifications or possibly tumoral blood products.? Given this area of abnormality was present on gradient sequence of prior MRI, it is felt to be nonacute.? ? Masslike enlargement of the optic chiasm better visualized on MRI brain of 05/01/2021 most consistent with tumor. ? Linear area of hyperdensity along the subdural space of the right frontal lobe most suggestive of postoperative blood products/postsurgical change given stability since 2020 and still present on most recent brain MRI of 05/01/2021. ? Dictated by: Linsey Donohue M.D. on 05/27/2021 at 18:54 ? ? Approved by: Linsey Donohue M.D. on 05/27/2021 at 19:07 ? Discharge Plan Departure Patient Disposition: Admitted As Inpatient Clinical Impression: Sepsis, Weakness Admit Date/Time: 05/27/21 19:37 Admit Provider: Nica Nava
--- NOTE | 2021-05-27 17:32 | DI.RAD.S_ITS ---
PROCEDURE: XR CHEST 1V INDICATIONS: sepsis, weakness TECHNIQUE: One view of the chest was acquired. COMPARISON: [facility], CR, XR CHEST 1V, 05/25/2021, 13:52. FINDINGS: Surgical changes and devices: Right-sided Port-A-Cath is unchanged. Lungs and pleura: Persistent appearance of blunting costophrenic angles. Previous bilateral pulmonary opacities remain present although improved. Mediastinum: Mediastinal contours appear normal. Heart size is mildly prominent. Bones and chest wall: No suspicious bony lesions. Overlying soft tissues appear unremarkable. IMPRESSION: Persistent appearance of blunted costophrenic angles related to scarring versus trace effusions. Improved appearance of bilateral pulmonary opacities. Dictated by: Linsey Donohue M.D. on 05/27/2021 at 18:12 Approved by: Linsey Donohue M.D. on 05/27/2021 at 18:13
--- NOTE | 2021-05-27 17:36 | DI.CT.S_ITS ---
PROCEDURE: CT HEAD/BRAIN WO CON INDICATIONS: altered, weakness TECHNIQUE: Noncontrast 4.5 mm thick angled axial sections acquired from the foramen magnum to the vertex, with coronal and sagittal reformats. For radiation dose reduction, the following was used: automated exposure control, adjustment of mA and/or kV according to patient size. COMPARISON: [facility], MR, MR HEAD/BRAIN WO/W CON, 05/01/2021, 17:18. [facility], MR, MR HEAD/BRAIN WO/W CON, 02/27/2021, 11:00. [facility], CT, CT HEAD/BRAIN WO CON, 04/12/2020, 13:53. FINDINGS: Image quality: Excellent. CSF spaces: Basal cisterns are patent. No extra-axial fluid collections. Ventricles are normal in size and shape. Brain: No midline shift. There is masslike prominence within the optic chiasm, better appreciated on MRI brain of 05/01/2021. There is a small linear area of increased density along the subdural space of the right frontal lobe. This was present on 04/12/2020 CT likely related to postoperative hemorrhage and still appeared present to a lesser degree on 05/01/2021 MRI brain.. There is low-attenuation in the right frontal lobe consistent with previously identified tumor. There are several foci of increased density within this region. This area corresponded to hypointensity on gradient sequence on prior MRI. Lutz-white matter interface is normal. Skull and face: Calvarium demonstrates postsurgical change. Sinuses: Visualized sinuses and mastoids are clear. IMPRESSION: Right frontal hypodensity consistent with known area of tumor. There are several foci of increased density identified which are suspicious for calcifications or possibly tumoral blood products. Given this area of abnormality was present on gradient sequence of prior MRI, it is felt to be nonacute. Masslike enlargement of the optic chiasm better visualized on MRI brain of 05/01/2021 most consistent with tumor. Linear area of hyperdensity along the subdural space of the right frontal lobe most suggestive of postoperative blood products/postsurgical change given stability since 2020 and still present on most recent brain MRI of 05/01/2021. Dictated by: Linsey Donohue M.D. on 05/27/2021 at 18:54 Approved by: Linsey Donohue M.D. on 05/27/2021 at 19:07
[2021-05-27] MEDS: levETIRAcetam 250 MG TABLET 1500 MG PO (18:18)
[2021-05-27] MEDS: SODIUM CHLORIDE 0.9% 1,000 ML 150 ML IV (18:19)
[2021-05-27 18:21] LABS: Alanine Aminotransferase 33 IU/L (<50); Albumin 4.3 g/dL (3.5-5.0); Albumin Globulin Ratio 1.4 (1.0-2.8); Alkaline Phosphatase 53 U/L (38-126); Aspartate Aminotransferase 29 IU/L (17-59); BUN Creatinine Ratio 25.4 (6-22); Bilirubin Total 0.8 mg/dL (0.2-1.3); Blood Urea Nitrogen 17 mg/dL (9-20); Calcium 8.9 mg/dL (8.4-10.2); Carbon Dioxide 26 mmol/L (22-32); Chloride 108 mmol/L (98-107); Creatine Kinase 21 U/L (55-170); Estimated Glomerular Filt Rate > 60.0 mL/min (>60); Glucose 146 mg/dL (80-110); HEMOLYSIS 39 (0-50); Lactate (Lactic Acid) 1.7 mmol/L (0.7-2.1); Potassium 4.1 mmol/L (3.4-5.1); Sodium 141 mmol/L (137-145); Total Protein 7.3 g/dL (6.3-8.2)
[2021-05-27 18:23] LABS: Add Manual Diff / Slide Review NO; Basophils Absolute Auto 0 /uL (0-100); Basophils Percent Auto 0.4 % (0-2); Eosinophils Absolute Auto 100 /uL (0-450); Eosinophils Percent Auto 2.3 % (2-4); Hematocrit 44.7 % (41-53); Hemoglobin 15.1 g/dL (13.5-17.5); Lymphocytes Absolute Auto 1200 /uL (1100-4500); Lymphocytes Percent Auto 19.7 % (25-40); Mean Corpuscular HGB Conc 33.8 % (30-36); Mean Corpuscular Hemoglobin 29.2 PG (26-34); Mean Corpuscular Volume 86.3 fL (80-100); Monocytes Absolute Auto 300 /uL (0-900); Monocytes Percent Auto 5.6 % (3-14); Neutrophils Absolute Auto 4300 /uL (1500-7000); Platelet Count 154 X10^3/uL (150-400); Red Blood Cell Count 5.18 X10^6/uL (4.5-5.9); Red Cell Distribution Width 13.3 % (11.6-14.8)
[2021-05-27 18:24] LABS: COVID19 -Nasal RAPID Negative (Negative)
[2021-05-27 18:33] LABS: Troponin I < 0.012 ng/mL (0.01-0.034)
[2021-05-27 18:37] LABS: Procalcitonin 0.06 ng/mL (<0.5)
[2021-05-27] MEDS: LACTATED RINGERS 2,190 ML 730 ML IV (18:41)
[2021-05-27] MEDS: cefTRIAXone 2,000 MG in SODIUM CHLORIDE 0.9% 100 ML 200 ML IV (18:44)
[2021-05-27] MEDS: VANCOMYCIN 2,000 MG/400 ML PIGGYBACK 200 MG IV (19:40)
[2021-05-27 19:49] LABS: UR Morphine/Opiate cutoff 300 Negative (Negative); Ur Creatinine Normal (Normal); Ur Specific Gravity Normal (Normal); Urine Amphetamines Negative (Negative); Urine Barbiturates Negative (Negative); Urine Benzodiazepines Negative (Negative); Urine Cocaine Negative (Negative); Urine MDMA Negative (Negative); Urine Methadone Negative (Negative); Urine Methamphetamines Negative (Negative); Urine Oxycodone Negative (Negative); Urine Phencyclidine Negative (Negative); Urine Tetrahydrocannabinol Negative (Negative); Urine Tricyclic Antidepressant Negative (Negative); Urine pH Normal (Normal)
[2021-05-27 19:50] LABS: Bacteria Urine None Seen; RBC Urine None Seen (0-5/HPF); WBC Urine None Seen (0-5/HPF)
[2021-05-27 19:51] LABS: Culture Indicated Urine Cult Not Indicated
--- NOTE | 2021-05-27 22:08 | P.HP_ITS ---
History of Present Illness History of Present Illness Date Patient Seen: 05/27/21 Time Patient Seen: 22:09 Chief complaint: weakness in legs Narrative: Nini Salas is an unfortunate 65 male and former smoker with a history of glioblastoma diagnosed in April [address] Christie locally.? He stated that he went to bed in his normal state of health and woke up this morning and found himself to be feeling generally unwell, per the ED, he complained of fever , to me, he stated he was told he had a fever, denied sweats or chills.? He states he has difficulty walking because he is blind in his left eye and worsening vision in his right eye. On 05/25/21, he had a port placed by Dr. Zheng with no complications and underwent his first treatment of chemotherapy with Avastin the same day. Per Dr. 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 In that note, patient reported of a curtain that started from left to right, more characteristic of a retinal tear or detachment. He denies any focal findings such as numbness, tingling or unilateral weakness.? He states he feels generally weak and feverish and has had trouble ambulating.? He denies nausea or vomiting.? He denies any pain.? He denies any chest pain or shortness of breath, dysuria, urinary frequency or urgency, constipation or diarrhea.? He denies.? He states that he just started up chemo again on which he will receive every [address] findings of today indicated the followin. Right frontal hypodensity consistent with known area of tumor.? There are several foci of increased density identified which are suspicious for calcifications or possibly tumoral blood products.? Given this area of abnormality was present on gradient sequence of prior MRI, it is felt to be nonacute.?2. Masslike enlargement of the optic chiasm better visualized on MRI brain of 05/01/2021 most consistent with tumor. 3. Linear area of hyperdensity along the subdural space of the right frontal lobe most suggestive of postoperative blood products/postsurgical change given stability since 2020 and still present on most recent brain MRI of 05/01/2021.. He was ordered and administered IV ceftriaxone and vancomycin in the ED. On presentation to the emergency department today his temperature was 100.1?, blood pressure 150/75, heart rate 80, respiratory rate 20, oxygen saturation of 97% on room air, he weighs 127 kg with a BMI of 40.1. CBC is unremarkable, glucose is mildly elevated 146, rest of chemistries are unremarkable, COVID-19 PCR is negative. ? Patient History Medical History Blind left eye (~04/30/21) Blurred vision, right eye Borderline diabetes mellitus Chronic back pain History of radiation therapy Surgical History Hx of cholecystectomy Hx of craniotomy (~04/05/20) Family & Social History Family History Mother Hypertension Diabetes mellitus Brother Hypertension Hyperlipidemia Heart attack Sister Breast cancer Father Hereditary hemorrhagic telangiectasia Social History: household members spouse Prior Living Arrangements House Safety & Behavioral: Feels Safe in Current Yes Environment Been Physically Hurt or No Threatened By a Person Suicidal Ideation Description None Suicide Plan Description No Plan Tobacco & Substance use: Smoking Status Former smoker alcohol intake former alcohol intake frequency other Substance Use Type does not use Meds Home Medications and Allergies Home Medications Medication Instructions Recorded Confirmed Type levetiracetam 1,000 mg tablet 1,500 mg PO BID 04/12/20 05/27/21 History (Keppra) acetaminophen 500 mg tablet 1,000 mg PO Q6H PRN 02/13/21 05/27/21 History triamcinolone acetonide 0.5 % 1 applic TOPICAL TID #15 g 02/24/21 05/27/21 Rx topical cream Allergies Allergy/AdvReac Type Severity Reaction Status Date / Time No Known Drug Allergies Allergy Verified 03/23/20 10:23 Review of Systems Review of Systems ROS: Yes All systems reviewed with the patient and are negative except as otherwise documented Exam Vital Signs (past 8 hours): - 05/27/21 17:07 05/27/21 17:08 05/27/21 17:12 Temperature 100.5 F H Pulse Rate 94 H 94 H 94 H Respiratory Rate 27 H 16 Blood Pressure 146/82 H 146/82 H Pulse Oximetry 92 92 93 05/27/21 17:30 05/27/21 18:20 05/27/21 18:22 Temperature Pulse Rate 88 95 H 93 H Respiratory Rate 25 H 25 H Blood Pressure 139/79 Pulse Oximetry 93 94 94 05/27/21 18:30 05/27/21 19:00 05/27/21 19:30 Temperature Pulse Rate 88 89 82 Respiratory Rate 24 19 11 L Blood Pressure 138/89 Pulse Oximetry 94 96 05/27/21 19:31 05/27/21 19:55 Temperature 100.1 F H Pulse Rate 83 80 Respiratory Rate 9 L 20 Blood Pressure 162/83 H 150/75 H Pulse Oximetry 96 97 Oxygen Delivery Method Room Air Oxygen Flow Rate 0 Narrative Exam Narrative: Gen: Alert, oriented, morbidly obese 65 y.o. male, in moderate distre ss HEENT: normocephalic, atraumatic, conjunctiva clear, sclera non-icteric, oral mucosa pink and moist Neck: supple, full ROM, no JVD, trachea is midline Resp: Lungs CTA, non-labored breathing CV: RRR, no murmur or rubs Abd: soft, non-tender, normoactive BTs Skin: right sided chest port appears intact with no erythema to suggest infection, no lesions or rashes, dry and intact Neuro: Appears to be photosensitive, alert and oriented X 4 w/no focal deficits. Speech clear and coherent. Extremities: moves all 4 extremities, is ambulatory, negative Tiffanie?s sign Psyche: normal mood and affect. Objective Labs Result Diagrams: 05/27/21 17:40 05/27/21 17:40 Labs: Laboratory Results - last 24 hr 05/27/21 05/27/21 05/27/21 17:40 17:40 17:40 WBC 6.0 RBC 5.18 Hgb 15.1 Hct 44.7 MCV 86.3 MCH 29.2 MCHC 33.8 RDW 13.3 Plt Count 154 Neut % (Auto) 72.0 Lymph % (Auto) 19.7 L [place] % (Auto) 5.6 Eos % (Auto) 2.3 Baso % (Auto) 0.4 Neut # (Auto) 4300 Lymph # (Auto) 1200 [place] # (Auto) 300 Eos # (Auto) 100 Baso # (Auto) 0 Sodium 141 Potassium 4.1 Chloride 108 H Carbon Dioxide 26 BUN 17 Creatinine 0.67 Estimated GFR > 60.0 BUN/Creatinine Ratio 25.4 H Glucose 146 H Lactate 1.7 Calcium 8.9 Total Bilirubin 0.8 AST 29 ALT 33 Alkaline Phosphatase 53 Total Creatine Kinase 21 L CK-MB (CK-2) TNP CK-MB (CK-2) Rel Index TNP Troponin I < 0.012 Total Protein 7.3 Albumin 4.3 Globulin 3.0 Albumin/Globulin Ratio 1.4 Procalcitonin 0.06 Urine RBC Urine WBC Urine Bacteria Ur Culture Indicated? U Opiates 300ng/mL cut Ur Oxycodone Screen Urine Methadone Screen Ur Barbiturates Screen U Tricyclic Antidepress Ur Phencyclidine Scrn Ur Amphetamines Screen U Methamphetamines Scrn Ur MDMA Scrn (Ecstasy) U Benzodiazepines Scrn Urine Cocaine Screen U Marijuana (THC) Screen SARS-CoV-2 (PCR) 05/27/21 05/27/21 05/27/21 17:45 19:00 19:00 WBC RBC Hgb Hct MCV MCH MCHC RDW Plt Count Neut % (Auto) Lymph % (Auto) [place] % (Auto) Eos % (Auto) Baso % (Auto) Neut # (Auto) Lymph # (Auto) [place] # (Auto) Eos # (Auto) Baso # (Auto) Sodium Potassium Chloride Carbon Dioxide BUN Creatinine Estimated GFR BUN/Creatinine Ratio Glucose Lactate Calcium Total Bilirubin AST ALT Alkaline Phosphatase Total Creatine Kinase CK-MB (CK-2) CK-MB (CK-2) Rel Index Troponin I Total Protein Albumin Globulin Albumin/Globulin Ratio Procalcitonin Urine RBC None seen Urine WBC None seen Urine Bacteria None seen Ur Culture Indicated? Cult not indicated U Opiates 300ng/mL cut Negative Ur Oxycodone Screen Negative Urine Methadone Screen Negative Ur Barbiturates Screen Negative U Tricyclic Antidepress Negative Ur Phencyclidine Scrn Negative Ur Amphetamines Screen Negative U Methamphetamines Scrn Negative Ur MDMA Scrn (Ecstasy) Negative U Benzodiazepines Scrn Negative Urine Cocaine Screen Negative U Marijuana (THC) Screen Negative SARS-CoV-2 (PCR) Negative Assessment & Plan Assessment & Plan narrative: Nini Jensen is admitted to the inpatient service for further management of likely chemotherapy induced fever. 1. Fever, acute and present on admission * Continue IV vancomycin and IV ceftriaxone. He received his first doses in the ED. and this will be continued. * Fever control w/scheduled tylenol and ibuprofen until it normalizes * Blood cx were drawn and are pending * Monitor for febrile neutropenia, currently normal 2. Glioblastoma multiforme, managed by oncology * Patient underwent craniotomy in 2020 and had one episode of a seizure * Continue keppra 1500 mg po bid 3. Morbid obesity, chronic * monitor for obesity complications VTE Prophylaxis: Wells risk score 1 Enoxaparin 40 mg subQ once daily Bilateral SCDs. Patient is admitted to the inpatient service due to the severity of disease, risks of further disease progression and this stay is expected to exceed 2 midnights. FEN: IV fluids: NS at 100 ml/hor, diet: general, labs: CBC, C/BMP, liver enzymes, Mag, PT/INR Consultants None, recommend notifying Dr. Christie if w/continued fevers Dispo: probable discharge to home Code status: DNR/DNI with limited interventions per patient's POLST. [X] I have utilized all available immediate resources to obtain, update, or review of the patient's current medications COVID-19 COVID-19 status: Negative Scores Wells' Criteria for PE Clinical signs and symptoms of DVT: No PE is #1 Dx or equally likely: No Heart rate > 100: No Immobilization at least 3 days or surg in previous 4 weeks: No History of PE or DVT: No Hemoptysis: No Malignancy w/Treatment within 6 months or palliative: Yes Wells' PE Score total: 1 Quality VTE Deep Vein Thrombosis/Pulmonary Embolism Present on Admission: No MIPS - Admit I confirm the patient?s Advance Care Plan is present, Code status is documented, Surrogate decision maker is in patient?s record [If Yes, STOP here]: Yes MIPS - DC The patient has current or prior documentation of left ventricular ejection fraction (LVEF) less than 40%, or moderate or severely depressed left ventricular systolic function.: No
[2021-05-27] MEDS: ACETAMINOPHEN 325 MG TABLET 650 MG PO (23:46)
[2021-05-28] VITALS (10 sets, daily range): BP systolic 129–149; BP diastolic 76–87; PULSE 76–83; RESP 16–18; TEMP 36.9–38.2; O2SAT 95–98
--- NOTE | 2021-05-28 04:23 | PC.NURSE ---
Pt admitted [facility] with sepsis of unknown etiology. Pt is 80% blind and can only see shadows. Pt was transfer to the recliner [facility] for comfort which was difficult due to his visual impairment. Pt resting in the recliner with chair alarm in place.
[2021-05-28] MEDS: ACETAMINOPHEN 325 MG TABLET 650 MG PO ×4 (05:11→23:56)
[2021-05-28] MEDS: levETIRAcetam 250 MG TABLET 1500 MG PO ×2 (08:25→18:33)
[2021-05-28] MEDS: ENOXAPARIN 40 MG/0.4 ML SYRINGE SUBCUT (08:25)
[2021-05-28] MEDS: VANCOMYCIN 2,000 MG/400 ML PIGGYBACK 200 MG IV ×2 (08:26→21:14)
[2021-05-28] MEDS: SODIUM CHLORIDE 0.9% 1,000 ML 100 ML IV ×2 (08:27→21:15)
--- NOTE | 2021-05-28 08:57 | P.PN_ITS ---
Subjective Subjective Date Patient Seen: 05/28/21 Interval history: He is seen today in his room to follow-up his glioblastoma, blindness and febrile illness. He tells me that he goes to a primary care physician at the [facility]. He lives with his in their home in [place]. She is healthy. 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 He is now on ceftriaxone and vancomycin for apparent sepsis/bacteremia. We are awaiting blood culture results and more clues as to where this infection was. His COVID test is negative. His UA is normal. He had a recent port placement but shows no outward signs of infection in that location. Exam Vital Signs (past 8 hours): - 05/28/21 04:15 05/28/21 05:22 Temperature 98.4 F Pulse Rate 78 Respiratory Rate 17 Blood Pressure 142/80 H Pulse Oximetry 97 97 Oxygen Delivery Method Room Air Oxygen Flow Rate 0 Narrative Exam Narrative: He is alert and oriented x3. He is blind. Heart is regular rate and rhythm without murmur Port location without drainage, swelling or redness. Lungs are clear to auscultation bilaterally Extremities have no ankle edema Objective Labs Result Diagrams: 05/28/21 08:34 05/28/21 08:34 Labs: Laboratory Results - last 24 hr 05/27/21 05/27/21 05/27/21 17:40 17:40 17:40 WBC 6.0 RBC 5.18 Hgb 15.1 Hct 44.7 MCV 86.3 MCH 29.2 MCHC 33.8 RDW 13.3 Plt Count 154 Neut % (Auto) 72.0 Lymph % (Auto) 19.7 L [place] % (Auto) 5.6 Eos % (Auto) 2.3 Baso % (Auto) 0.4 Neut # (Auto) 4300 Lymph # (Auto) 1200 Real # (Auto) 300 Eos # (Auto) 100 Baso # (Auto) 0 Sodium 141 Potassium 4.1 Chloride 108 H Carbon Dioxide 26 BUN 17 Creatinine 0.67 Estimated GFR > 60.0 BUN/Creatinine Ratio 25.4 H Glucose 146 H Lactate 1.7 Calcium 8.9 Total Bilirubin 0.8 AST 29 ALT 33 Alkaline Phosphatase 53 Total Creatine Kinase 21 L CK-MB (CK-2) TNP CK-MB (CK-2) Rel Index TNP Troponin I < 0.012 Total Protein 7.3 Albumin 4.3 Globulin 3.0 Albumin/Globulin Ratio 1.4 Procalcitonin 0.06 Urine RBC Urine WBC Urine Bacteria Ur Culture Indicated? U Opiates 300ng/mL cut Ur Oxycodone Screen Urine Methadone Screen Ur Barbiturates Screen U Tricyclic Antidepress Ur Phencyclidine Scrn Ur Amphetamines Screen U Methamphetamines Scrn Ur MDMA Scrn (Ecstasy) U Benzodiazepines Scrn Urine Cocaine Screen U Marijuana (THC) Screen SARS-CoV-2 (PCR) 05/27/21 05/27/21 05/27/21 17:45 19:00 19:00 WBC RBC Hgb Hct MCV MCH MCHC RDW Plt Count Neut % (Auto) Lymph % (Auto) Real % (Auto) Eos % (Auto) Baso % (Auto) Neut # (Auto) Lymph # (Auto) Real # (Auto) Eos # (Auto) Baso # (Auto) Sodium Potassium Chloride Carbon Dioxide BUN Creatinine Estimated GFR BUN/Creatinine Ratio Glucose Lactate Calcium Total Bilirubin AST ALT Alkaline Phosphatase Total Creatine Kinase CK-MB (CK-2) CK-MB (CK-2) Rel Index Troponin I Total Protein Albumin Globulin Albumin/Globulin Ratio Procalcitonin Urine RBC None seen Urine WBC None seen Urine Bacteria None seen Ur Culture Indicated? Cult not indicated U Opiates 300ng/mL cut Negative Ur Oxycodone Screen Negative Urine Methadone Screen Negative Ur Barbiturates Screen Negative U Tricyclic Antidepress Negative Ur Phencyclidine Scrn Negative Ur Amphetamines Screen Negative U Methamphetamines Scrn Negative Ur MDMA Scrn (Ecstasy) Negative U Benzodiazepines Scrn Negative Urine Cocaine Screen Negative U Marijuana (THC) Screen Negative SARS-CoV-2 (PCR) Negative PFSH Medical History Blind left eye (~04/30/21) Blurred vision, right eye Borderline diabetes mellitus Chronic back pain History of radiation therapy Surgical History Hx of cholecystectomy Hx of craniotomy (~04/05/20) Family History Mother Hypertension Diabetes mellitus Brother Hypertension Hyperlipidemia Heart attack Sister Breast cancer Father Hereditary hemorrhagic telangiectasia Social History household members: spouse Smoking Status: Former smoker alcohol intake: former substance use type: does not use Assessment & Plan Assessment & Plan narrative: Nini Jensen is admitted to the inpatient service for further management of likely chemotherapy induced fever. 1. Fever, acute and present on admission * Continue IV vancomycin and IV ceftriaxone. He received his first doses in the ED. and this will be continued. * Fever control w/scheduled tylenol and ibuprofen until it normalizes * Blood cx were drawn and are pending * Monitor for febrile neutropenia, currently normal * UA normal. COVID test negative. Chest x-ray normal. No headache to indicate need for spinal tap. 2. Glioblastoma multiforme, managed by oncology * Patient underwent craniotomy in 2020 and had one episode of a seizure * Continue keppra 1500 mg po bid * Per Dr. Christie's last progress note of May 19, he has 3 right frontal lobe rim enhancing masses and a brain MRI done in April of this year indicated a new enhancing tumor on the optic chasm and posterior pre chiasma tic optic nerves. * No new neurologic symptoms. 3. Morbid obesity, chronic * monitor for obesity complications VTE Prophylaxis: Wells risk score 1 Enoxaparin 40 mg subQ once daily? Bilateral SCDs. Patient is admitted to the inpatient service due to the severity of disease, r isks of further disease progression and this stay is expected to exceed 2 midnights. Consultants? None, recommend notifying Dr. Christie if w/continued fevers Dispo: probable discharge to home Code status: DNR/DNI with limited interventions per patient's POLST. Time Spent With Patient Critical Care time: I spent a total of [] minutes of critical care time on this patient's care today; this time is exclusive of procedural time. Quality VTE Deep Vein Thrombosis/Pulmonary Embolism Present on Admission: No
[2021-05-28 09:30] LABS: Add Manual Diff / Slide Review NO; Basophils Absolute Auto 0 /uL (0-100); Basophils Percent Auto 0.4 % (0-2); Eosinophils Absolute Auto 100 /uL (0-450); Eosinophils Percent Auto 1.5 % (2-4); Hemoglobin 14.8 g/dL (13.5-17.5); Lymphocytes Absolute Auto 1600 /uL (1100-4500); Lymphocytes Percent Auto 22.6 % (25-40); Mean Corpuscular HGB Conc 33.7 % (30-36); Mean Corpuscular Hemoglobin 29.1 PG (26-34); Mean Corpuscular Volume 86.3 fL (80-100); Monocytes Absolute Auto 400 /uL (0-900); Monocytes Percent Auto 6.1 % (3-14); Neutrophils Absolute Auto 5000 /uL (1500-7000); Neutrophils Percent Auto 69.4 % (50-75); Platelet Count 147 X10^3/uL (150-400); Red Cell Distribution Width 13.7 % (11.6-14.8); White Blood Cell Count 7.2 X10^3/uL (4.5-11.0)
[2021-05-28 09:44] LABS: BUN Creatinine Ratio 17.6 (6-22); Blood Urea Nitrogen 13 mg/dL (9-20); Calcium 8.8 mg/dL (8.4-10.2); Carbon Dioxide 28 mmol/L (22-32); Chloride 107 mmol/L (98-107); Estimated Glomerular Filt Rate > 60.0 mL/min (>60); Glucose 136 mg/dL (80-110); HEMOLYSIS < 15 (0-50); Magnesium 2.1 mg/dL (1.6-2.3); Potassium 4.1 mmol/L (3.4-5.1); Sodium 141 mmol/L (137-145)
--- NOTE | 2021-05-28 16:17 | CM.DANOTE ---
DCP/Assessment: Shakila is a 65yr old male admitted to [facility] with generalized weakness/fever most likely related to chemotherapy. PCP listed is Anabel Nicole. Primary payor is 1)Medicare 2) for Life. Per notes, patient diagnosed with glioblastoma in April 2020. Patient actively being seen by Dr. Christie at [facility]. Dr. Christie's lastest progress note in 2021 indicate new tumor found. Patient with sign up in room indicating that he is visually impaired. RESAW TAILER attempted to meet patient this afternoon but patient had no interest in visit from clinical social work aide. CM team will continue to follow for needs. It would not be unusual for patient to be upset about most recent findings and general cancer dx. From notes it appears that patient resides with his spouse in [place]. P: Pending. CM team will follow for d/c planning needs. KJS Discharge Planning/Care Management Advanced directive, confirm from FAMILY Start: 05/27/21 20:22 Freq: Q24H Status: Active Protocol: Document 05/27/21 20:22 MW (Rec: 05/27/21 20:24 MW [id number]) Advance Directive, confirm on record Time 20:23 Person contacted pt Copy received No CM Discharge Assessment Start: 05/28/21 16:11 Freq: Status: Active Protocol: Document 05/28/21 16:11 KJS (Rec: 05/28/21 16:16 KJS [id number]) Discharge Planning Assessment Assigned [employer] OREN Blake Contact Information Chanda Jensen (spouse) ph# [phone] Advance Directives? Yes Advance Directives on File No History Provided By Patient,Medical Record Prior Living Arrangements House Household Members spouse Comment Unknown Independent with ADL's Unclear Is patient alert and oriented? Unclear Discharge Plan Home Transportation Arrangement Family to provide transport. Additional Comment At this time d/c planning needs unknown. Attempted to meet wtih shakila this afternoon and he reports that I don't need a clinical social work aide, josh. RESAW TAILER left and CM team will follow up as needed. Review Status In Process Next Review Type Continued Stay Review
[2021-05-28] MEDS: cefTRIAXone 1,000 MG in SODIUM CHLORIDE 0.9% 100 ML 200 ML IV (17:49)
[2021-05-29] VITALS (13 sets, daily range): BP systolic 128–141; BP diastolic 72–86; PULSE 71–90; RESP 14–18; TEMP 36.3–37.7; O2SAT 94–97
[2021-05-29] MEDS: ACETAMINOPHEN 325 MG TABLET 650 MG PO ×4 (05:46→23:31)
[2021-05-29] MEDS: levETIRAcetam 250 MG TABLET 1500 MG PO ×2 (05:46→19:02)
[2021-05-29 08:26] LABS: Add Manual Diff / Slide Review NO; BUN Creatinine Ratio 21.1 (6-22); Basophils Absolute Auto 0 /uL (0-100); Basophils Percent Auto 0.4 % (0-2); Blood Urea Nitrogen 12 mg/dL (9-20); Calcium 8.5 mg/dL (8.4-10.2); Carbon Dioxide 24 mmol/L (22-32); Chloride 107 mmol/L (98-107); Eosinophils Absolute Auto 200 /uL (0-450); Eosinophils Percent Auto 2.5 % (2-4); Estimated Glomerular Filt Rate > 60.0 mL/min (>60); Glucose 176 mg/dL (80-110); HEMOLYSIS < 15 (0-50); Hematocrit 41.2 % (41-53); Hemoglobin 13.9 g/dL (13.5-17.5); Lymphocytes Absolute Auto 1400 /uL (1100-4500); Lymphocytes Percent Auto 21.8 % (25-40); Mean Corpuscular HGB Conc 33.8 % (30-36); Mean Corpuscular Hemoglobin 29.2 PG (26-34); Mean Corpuscular Volume 86.3 fL (80-100); Monocytes Absolute Auto 400 /uL (0-900); Monocytes Percent Auto 6.6 % (3-14); Neutrophils Absolute Auto 4500 /uL (1500-7000); Neutrophils Percent Auto 68.7 % (50-75); Platelet Count 138 X10^3/uL (150-400); Potassium 3.8 mmol/L (3.4-5.1); Red Blood Cell Count 4.78 X10^6/uL (4.5-5.9); Red Cell Distribution Width 13.8 % (11.6-14.8); Sodium 138 mmol/L (137-145); White Blood Cell Count 6.6 X10^3/uL (4.5-11.0)
[2021-05-29 08:37] LABS: Vancomycin Trough 9.3 ug/mL (10-20)
[2021-05-29] MEDS: SODIUM CHLORIDE 0.9% 1,000 ML 100 ML IV ×2 (09:24→22:45)
[2021-05-29] MEDS: VANCOMYCIN 2,000 MG/400 ML PIGGYBACK 200 MG IV ×2 (09:28→20:25)
[2021-05-29] MEDS: ENOXAPARIN 40 MG/0.4 ML SYRINGE SUBCUT (09:29)
--- NOTE | 2021-05-29 14:06 | P.PN_ITS ---
Subjective Subjective Date Patient Seen: 05/29/21 Interval history: Patient is a 65-year-old male with a history of glioblastoma, with recurrence, new blindness and now febrile illness. Patient continues to have low-grade fever. He denies any pain, headache, shortness of breath, nausea or vomiting. A he continues to have low-grade fever of 99.9. But no specific complaints. His COVID test is negative, UA is negative, patient had a recent port placed a few days ago. But there is no erythema redness around the port site. Blood cultures thus far is negative. Exam Vital Signs (past 8 hours): - 05/29/21 06:21 05/29/21 07:40 05/29/21 07:42 Temperature 99 F Pulse Rate Respiratory Rate Blood Pressure Pulse Oximetry 94 95 05/29/21 07:50 05/29/21 11:35 05/29/21 12:44 Temperature 97.3 F L 99.9 F H Pulse Rate 83 78 Respiratory Rate 18 18 Blood Pressure 128/74 141/72 H Pulse Oximetry 94 95 Oxygen Delivery Method Room Air Oxygen Flow Rate 0 Narrative Exam Narrative: Ill-appearing male who is functionally blind sitting in a chair Chest Other: Port-A-Cath site in the right chest is clean and dry, there is no erythema, mild tenderness, no fluctuance noted Resp Other: Lungs clear to auscultation Cardio Other: Cardiac exam: Regular rate and rhythm normal S1-S2 GI Other: Abdomen: Soft nontender nondistended Extrem Other: Extremities: No edema Objective Labs Result Diagrams: 05/29/21 07:30 05/29/21 07:30 Labs: Laboratory Results - last 24 hr 05/29/21 05/29/21 05/29/21 07:30 07:30 07:30 WBC 6.6 RBC 4.78 Hgb 13.9 Hct 41.2 MCV 86.3 MCH 29.2 MCHC 33.8 RDW 13.8 Plt Count 138 L Neut % (Auto) 68.7 Lymph % (Auto) 21.8 L [place] % (Auto) 6.6 Eos % (Auto) 2.5 Baso % (Auto) 0.4 Neut # (Auto) 4500 Lymph # (Auto) 1400 [place] # (Auto) 400 Eos # (Auto) 200 Baso # (Auto) 0 Sodium 138 Potassium 3.8 Chloride 107 Carbon Dioxide 24 BUN 12 Creatinine 0.57 L Estimated GFR > 60.0 BUN/Creatinine Ratio 21.1 Glucose 176 H Calcium 8.5 Vancomycin Trough 9.3 L PFSH Medical History Blind left eye (~04/30/21) Blurred vision, right eye Borderline diabetes mellitus Chronic back pain History of radiation therapy Surgical History Hx of cholecystectomy Hx of craniotomy (~04/05/20) Family History Mother Hypertension Diabetes mellitus Brother Hypertension Hyperlipidemia Heart attack Sister Breast cancer Father Hereditary hemorrhagic telangiectasia Social History household members: spouse Smoking Status: Former smoker alcohol intake: former substance use type: does not use Assessment & Plan Assessment & Plan narrative: Nini Jensen is admitted to the inpatient service for further management of likely chemotherapy induced fever. 1. Fever, acute and present on admission * Continue IV vancomycin and IV ceftriaxone. He received his first doses in the ED. and this will be continued. * Fever control w/scheduled tylenol and ibuprofen until it normalizes * Blood cx negative today, given low-grade fever will repeat * Monitor for febrile neutropenia, currently normal * UA normal.? COVID test negative.? Chest x-ray normal.? No headache to indicate need for spinal tap. * Suspect Port-A-Cath site likely etiology, will continue IV ceftriaxone and vanco at this time 2. Glioblastoma multiforme, managed by oncology * Patient underwent craniotomy in 2020 and had one episode of a seizure * Continue keppra 1500 mg po bid * Per Dr. 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 * No new neurologic symptoms. 3. Morbid obesity, chronic * monitor for obesity complications Time Spent With Patient Critical Care time: I spent a total of [] minutes of critical care time on this patient's care today; this time is exclusive of procedural time. Quality VTE Deep Vein Thrombosis/Pulmonary Embolism Present on Admission: No
[2021-05-29 15:17] LABS: Procalcitonin 0.06 ng/mL (<0.5)
--- NOTE | 2021-05-29 15:54 | PC.NURSE ---
No complaints of pain. vlad 2 sets of blood cultures. around noon pt reported of having some shakes temp was 99.0 gave tylenol, shakes resolved.
[2021-05-29] MEDS: cefTRIAXone 1,000 MG in SODIUM CHLORIDE 0.9% 100 ML 200 ML IV (18:00)
[2021-05-30 04:00] VITALS: BP 127/63; PULSE 68; RESP 18; TEMP 36.9; O2SAT 100
[2021-05-30] MEDS: ACETAMINOPHEN 325 MG TABLET 650 MG PO ×2 (05:17→11:32)
[2021-05-30 05:44] LABS: Add Manual Diff / Slide Review NO; Basophils Absolute Auto 0 /uL (0-100); Basophils Percent Auto 0.6 % (0-2); Eosinophils Absolute Auto 200 /uL (0-450); Eosinophils Percent Auto 3.5 % (2-4); Hematocrit 40.3 % (41-53); Hemoglobin 13.8 g/dL (13.5-17.5); Lymphocytes Absolute Auto 1300 /uL (1100-4500); Lymphocytes Percent Auto 23.8 % (25-40); Mean Corpuscular HGB Conc 34.2 % (30-36); Mean Corpuscular Hemoglobin 29.1 PG (26-34); Mean Corpuscular Volume 85.1 fL (80-100); Monocytes Absolute Auto 400 /uL (0-900); Monocytes Percent Auto 6.4 % (3-14); Neutrophils Absolute Auto 3700 /uL (1500-7000); Neutrophils Percent Auto 65.7 % (50-75); Platelet Count 129 X10^3/uL (150-400); Red Blood Cell Count 4.74 X10^6/uL (4.5-5.9); Red Cell Distribution Width 13.5 % (11.6-14.8); White Blood Cell Count 5.6 X10^3/uL (4.5-11.0)
[2021-05-30 05:50] LABS: BUN Creatinine Ratio 18.2 (6-22); Blood Urea Nitrogen 10 mg/dL (9-20); Calcium 8.6 mg/dL (8.4-10.2); Carbon Dioxide 24 mmol/L (22-32); Chloride 110 mmol/L (98-107); Estimated Glomerular Filt Rate > 60.0 mL/min (>60); Glucose 129 mg/dL (80-110); HEMOLYSIS 16 (0-50); Sodium 137 mmol/L (137-145)
[2021-05-30] MEDS: levETIRAcetam 250 MG TABLET 1500 MG PO (06:46)
[2021-05-30 08:00] VITALS: BP 113/85; PULSE 71; RESP 16; TEMP 36.2; O2SAT 96
[2021-05-30 08:05] VITALS: O2SAT 96
[2021-05-30] MEDS: SODIUM CHLORIDE 0.9% 1,000 ML 100 ML IV (08:19)
[2021-05-30] MEDS: ENOXAPARIN 40 MG/0.4 ML SYRINGE SUBCUT (08:20)
[2021-05-30] MEDS: VANCOMYCIN 2,000 MG/400 ML PIGGYBACK 200 MG IV (08:21)
[2021-05-30 10:59] VITALS: O2SAT 96
--- NOTE | 2021-05-30 11:21 | P.DS_ITS ---
History of Present Illness History of Present Illness Date Patient Seen: 05/30/21 Time Patient Seen: 11:21 Chief complaint: weakness in legs Narrative: Nini Salas is an unfortunate 65 male and former smoker with a history of glioblastoma diagnosed in April [address] Christie locally.? He stated that he went to bed in his normal state of health and woke up this morning and found himself to be feeling generally unwell, per the ED, he complained of fever, to me, he stated he was told he had a fever, denied sweats or chills.? He states he has difficulty walking because he is blind in his left eye and worsening vision in his right eye. On 05/25/21, he had a port placed by Dr. Zheng with no complications and underwent his first treatment of chemotherapy with Avastin the same day. Per Dr. 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 In that note, patient reported of a curtain that started from left to right, more characteristic of a retinal tear or detachment. He denies any focal findings such as numbness, tingling or unilateral weakness.? He states he feels generally weak and feverish and has had trouble ambulating.? He denies nausea or vomiting.? He denies any pain.? He denies any chest pain or shortness of breath,? dysuria, urinary frequency or urgency, constipation or diarrhea.? He denies.? He states that he just started up chemo again on which he will receive every [address] findings of today indicated the followin.?Right frontal hypodensity consistent with known area of tumor.? There are several foci of increased density identified which are suspicious for calcifications or possibly tumoral blood products.? Given this area of abnormality was present on gradient sequence of prior MRI, it is felt to be nonacute.?2. Masslike enlargement of the optic chiasm better visualized on MRI brain of 05/01/2021 most consistent with tumor. 3. Linear area of hyperdensity along the subdural space of the right frontal l obe most suggestive of postoperative blood products/postsurgical change given stability since 2020 and still present on most recent brain MRI of 05/01/2021..? He was ordered and administered IV ceftriaxone and vancomycin in the ED. On presentation to the emergency department today his temperature was 100.1?, blood pressure 150/75, heart rate 80, respiratory rate 20, oxygen saturation of 97% on room air, he weighs 127 kg with a BMI of 40.1.? CBC is unremarkable, glucose is mildly elevated 146, rest of chemistries are unremarkable, COVID-19 PCR is negative. ? Discharge Providers Provider Date of admission: 05/27/21 19:37 Discharge Date: 05/30/21 Primary care physician: JHON Hinojosa Discharge provider: Krista Valentino MD Summary Hospital Course Discharge Diagnosis: 1. Febrile illness, etiology unclear 2. Glioblastoma multiforme, status post chemotherapy 3. Status post MediPort placement 05/25/21 4. 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 Morbid obesity Hospital Course: The patient is a 65-year-old male with a history of glioblastoma multiforme, who underwent MediPort placement 2 days prior to admission. The patient developed a fever, with no associated sweats or chills. Chest x-ray in the emergency department was negative, UA was negative, blood cultures obtained were negative as well. CT of the head, MRI, was unchanged. Patient was treated with IV vancomycin and IV ceftriaxone. He defervesced quite nicely. He had no associated clinical symptoms. Repeat blood cultures remain negative at this time. The patient overall made steady progress. It was presumed that the fever was related to his recent line placement although blood cultures remain negative. Patient continued to improve and was deemed appropriate for discharge home. Status at Discharge Cognitive/behavioral status at discharge: oriented Functional status at discharge: uses cane/walker Overall status at discharge: patient is progressing back to baseline Exam Vital Signs (past 8 hours): - 05/30/21 04:00 05/30/21 08:00 05/30/21 08:05 Temperature 98.4 F 97.1 F L Pulse Rate 68 71 Respiratory Rate 18 16 Blood Pressure 127/63 113/85 Pulse Oximetry 100 96 96 05/30/21 10:59 Temperature Pulse Rate Respiratory Rate Blood Pressure Pulse Oximetry 96 Oxygen Delivery Method Room Air Oxygen Flow Rate 0 Narrative Exam Narrative: Pleasant male sitting in a chair in no obvious distress Eyes Other: Patient is blind Resp Other: Lungs clear to auscultation Cardio Other: Cardiac exam: Regular rate and rhythm normal S1-S2 GI Other: Abdomen soft nontender nondistended Extrem Other: Extremity no edema Objective Labs Result Diagrams: 05/30/21 05:20 05/30/21 05:20 Labs: Laboratory Results - last 24 hr 05/29/21 05/30/21 05/30/21 14:45 05:20 05:20 WBC 5.6 RBC 4.74 Hgb 13.8 Hct 40.3 L MCV 85.1 MCH 29.1 MCHC 34.2 RDW 13.5 Plt Count 129 L Neut % (Auto) 65.7 Lymph % (Auto) 23.8 L [place] % (Auto) 6.4 Eos % (Auto) 3.5 Baso % (Auto) 0.6 Neut # (Auto) 3700 Lymph # (Auto) 1300 [place] # (Auto) 400 Eos # (Auto) 200 Baso # (Auto) 0 Sodium 137 Potassium 4.0 Chloride 110 H Carbon Dioxide 24 BUN 10 Creatinine 0.55 L Estimated GFR > 60.0 BUN/Creatinine Ratio 18.2 Glucose 129 H Calcium 8.6 Procalcitonin 0.06 PFSH Medical History Blind left eye (~04/30/21) Blurred vision, right eye Borderline diabetes mellitus Chronic back pain History of radiation therapy Surgical History Hx of cholecystectomy Hx of craniotomy (~04/05/20) Family History Mother Hypertension Diabetes mellitus Brother Hypertension Hyperlipidemia Heart attack Sister Breast cancer Father Hereditary hemorrhagic telangiectasia Social History household members: spouse Smoking Status: Former smoker alcohol intake: former substance use type: does not use Discharge Assessment & Plan Assessment and Plan Assessment: Febrile illness, etiology unclear 2. Glioblastoma multiforme, status post chemotherapy 3. Status post MediPort placement 05/25/21 4. 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 Morbid obesity Plan of Treatment: Discharge home Follow-up with Dr. Christie as scheduled June 08 Ciprofloxacin 500 twice daily for 7 days Discharge Plan Discharge Plan Patient Disposition: Home Discharge orders & Medications Prescriptions: New ciprofloxacin HCl [Cipro] 500 mg tablet 500 mg PO Q12H Qty: 14 0RF Continued triamcinolone acetonide 0.5 % cream 1 applic topical TID Qty: 15 0RF levetiracetam [Keppra] 1,000 mg Tablet 1,500 mg PO BID 0RF acetaminophen 500 mg Tablet 1,000 mg PO Q6H PRN (Reason: Pain (Scale Score 1-3)) 0RF Follow up/Referrals: Anabel Nicole ARNP [Primary Care Provider] - Tish Christie MD [Physician] - Discharge Health Status Multidrug resistant organism: No MDRO Diet/Activity/Treatments Diet: Diet as Tolerated Skin/Wound/Dressing Care Report to your healthcare provider any signs of infection, such as:: chills, fever Discharge Data Primary Care Provider: Anabel Nicole Quality VTE Deep Vein Thrombosis/Pulmonary Embolism Present on Admission: No
--- NOTE | 2021-05-30 12:43 | PC.NURSE ---
Pt assisted in dressing, gathered all belongings and nurse de-accessed port, d/c tele, nurse reviewed discharge paperwork with pt and , signed and nurse took pt down to son's car in wheel chair, pt has walker and will last picker prescription as advised.
== END 2021-05-30 12:48 | disposition home or self-care (01) | DRG 982 ==
LOC: ED 19:16 → AC 19:37
PROVIDERS: Internal Medicine; Admitting Provider Nurse Practitioner Family; Emergency Provider Emergency Medicine; PCP Nurse Practitioner Family; Referring Provider Emergency Medicine; Visit Provider Nurse Practitioner Family
DX: T80.219A Unspecified infection due to central venous catheter, initial encounter (principal); C71.9 Malignant neoplasm of brain, unspecified; Z68.41 Body mass index [BMI] 40.0-44.9, adult; E66.01 Morbid (severe) obesity due to excess calories; Z20.822 Contact with and (suspected) exposure to COVID-19; Z66 Do not resuscitate; Z87.891 Personal history of nicotine dependence
CPT/HCPCS: 36415; 70450; 71045; 76000; 80048; 80053; 80202; 80305; 81003; 81015; 82550; 82962; 83605; 83735; 84145; 84484; 85025; 87040; 87635; 93005; 94760; 96365; 96413; 96415; 96523; 99285; C9803; C1788; J0690; J0696; J1644; J1650; J2405; J2704; Q5118

== ENCOUNTER → 2021-06-07 14:34 | Outpatient (CLI) | payer MEDICARE, OTHER, SELFPAY ==
[2021-05-27 20:16] VITALS: BMI 40.1
--- NOTE | 2021-06-07 14:37 | DI.MRI.S_ITS ---
PROCEDURE: MR HEAD/BRAIN WO/W CON INDICATIONS: GLIOBLASTOMA TECHNIQUE: Noncontrast axial T1 spin echo, axial T2 fast spin echo, sagittal and axial FLAIR, coronal T2 fast spin echo, axial gradient echo, axial diffusion and ADC through the brain. After the administration of contrast, axial and coronal 3D VIBE or T1 spin echo with fat saturation through the brain. COMPARISON: [facility], CT, CT HEAD/BRAIN WO CON, 05/27/2021, 18:39. [facility], MR, MR HEAD/BRAIN WO/W CON, 05/01/2021, 17:18. FINDINGS: Image quality: Excellent. CSF Spaces: Basal cisterns are patent. No extra-axial fluid collections. Ventricles are normal in size and shape. Brain: Neoplastic involvement of the optic chiasm is similar in size measuring 1.6 x 1.9 cm, but now showing evidence of internal necrosis. FLAIR signal along the optic radiations and inferior forniceal white matter tracks have significantly improved from the prior as well. White matter increased FLAIR signal in the right upper cerebral hemisphere is stable from the prior, reflecting sequelae of cancer treatment. Focal irregular enhancement in the right superior frontal gyrus now less than 1 cm, improved in size and intensity from the prior. Encephalomalacia and gliosis in the left superior parietal lobule is similar to the prior. Skull and face: Craniotomy changes noted with multiple round plates, similar prior Sinuses: Sinuses and mastoids appear clear. IMPRESSION: 1. Positive response to treatment. Chiasmic tumor shows increasing internal necrosis, and right frontal enhancing lesion is decreased in size and intensity. 2. 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 Right parietal focal encephalomalacia and gliosis without focal enhancement. Approved by: Anuel Orellana M.D. on 06/07/2021 at 16:26
== END ==
PROVIDERS: PCP Nurse Practitioner Family; Referring Provider Radiology Radiation Oncology; Visit Provider Radiology Radiation Oncology
DX: C71.8 Malignant neoplasm of overlapping sites of brain (principal); G93.89 Other specified disorders of brain
CPT/HCPCS: 70553